=== PATIENT | male | born 1960 | race Caucasian/White ===

== ENCOUNTER 2024-07-01 22:31 | Inpatient (IN) ==
[2024-07-01] MEDS: OPTIRAY 320 125ml IV ONE (22:36)
--- OUTSIDE RECORDS SUMMARY | 2024-07-01 22:38 | External Medical Summary | Summary of Care ---
Author Name Unknown Organization [facility] Address [address] [facility] [address] Phone [phone] Care Team Providers Care Program Dir Name Role Phone Fidencio Thrasher MD Primary Care Provide r Reason for Visit * Reason Onset Date Comments Advice 02/29/2024 Encounter Details Date Type Department Care Team (Late st Contact Info) Description 02/29/2024 Telephone Family Medicine [address] [address] Fidencio Thrasher MD [address] [place] [address] [place] [address] Advice Allergies No known active allergiesdocumented as of this encounter (statuses as of 03/07/2024) Medications Medication Sig Dispensed Refills Start Date End Date Status ONETOUCH ULTRA TEST STRPIndications:DM type 2, not at goal (HCC) daily 100 11 06/19/2009 Active Rosuvastatin Calcium 5 MG Oral Tablet (Crestor)Indications: Dyslipidemia, goal LDL below 100 TAKE 1 TABLET BY MOUTH 3 TIMES A WEEK (TUESDAY, TUESDAY & TUESDAY) 36 Tablet 1 11/22/2023 Active Pioglitazone HCl 30 MG Oral Tablet (Actos)Indications:Ty pe 2 diabetes mellitus with hemoglobin A1c goal of less than 7.0% (HCC) TAKE 1 TABLET BY MOUTH EVERY DAY IN THE MORNING 90 Tablet 3 12/28/2023 Active Lisinopril 30 MG Oral TabletIndications:Typ e 2 diabetes mellitus with hemoglobin A1c goal of less than 7.0% (HCC),Primary hypertension TAKE 1 TABLET BY MOUTH EVERY DAY IN THE MORNING 90 Tablet 3 12/28/2023 Active Citalopram Hydrobromide 10 MG Oral Tablet (CeleXA)Indications:A cute stress disorder Take 1 Tablet by mouth in the morning. 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 11/07/2017 Primary hypertension 01/26/2016 Hypersomnia with sleep apnea 11/20/2010 HYPOXEMIA: nocturnal 09/04/2010 SLEEP APNEA, UNSPECIFIED: AHI 68.7 09/04/2010 Overview: Compliance 11/03 to 12/20/10 -- days used 93%, days with >=4 hrs used 75%, pressures 12-16, AHI 4.4 Compliance 09/16 to 10/04/10 -- used 89% days, days > 4 hrs used 21%, average use 1:58 hrs, BIRD 2.6, 12-14 cwp 09/17/10 Nocturnal on CPAP/RA -- low 86%, mean 92%, time <=88% 1:56 mins, BIRD 9.6 AHP, CPAP auto 10-20 cwp, no oxygen Diverticulosis of colon 07/23/2009 Overview: sigmoid DYSLIPIDEMIA, GOAL LDL BELOW 100 06/17/2009 Overview: Per Lipid Taxonomy. Type 2 diabetes mellitus wit h hemoglobin A1c goal of less than 7.0% 05/08/2009 Overview: Per Diabetes Taxonomy. ICD-10 update of inactive term ADVANCE DIRECTIVE INFORMATION 05/17/2006 Overview: No, Advance Directive brochure offered , patient declined. documented as of this encounter (statuses as of 03/07/2024) Resolved Problems Problem Noted Date Diagnosed Date Resolved Date Stage 3a chronic kidney disease 11/30/2021 12/13/2022 Overview: EGFR 56 Body mass index (BMI) of 45. 0 to 49.9 in adult 02/18/2020 06/26/2020 Overview: Per Obesity protocol - 320 Morbid obesity with BMI of 50.0-59.9, adult 02/05/2020 02/21/2020 Overview: 320 Body mass index (BMI) of 50. 0 to 59.9 in adult 06/18/2019 02/21/2020 Overview: Per Obesity protocol Body mass index (BMI) of 45. 0 to 49.9 in adult 07/19/2017 05/26/2018 Overview: Per Obesity protocol #1 - Per Obesity protocol #1 Body mass index (BMI) of 40. 0 to 44.9 in adult 04/11/2017 07/21/2017 Overview: Per Obesity protocol #1 Gout of right ankle 03/26/2016 05/09/20 18 Overview: uric acid 8.9 Acute idiopathic gout of right ankle 02/14/2016 05/10/2017 HTN, goal below 140/90 02/28/201201/25 Overview: Per HTN Protocol #27. Obesity, morbid (more than 1 00 lbs over ideal weight or BMI > 40) 10/07/2009 01/18/2011 Overview: Per Obesity Taxonomy ICD-10 update of inactive term Benign neoplasm of colon 07/23/200905/2011 Overview: 2 sessile polyps in rectum, 2 sessile polyps in ascending colon Benign neoplasm of colon 07/23/2009 Overview: 2 sessile polyps in rectum, 2 adenomas in ascending colon HTN, goal below 130/80 06/19/200903/02 HTN, goal below 140/90 05/16/200906/19 Overview: Modified per HTN Taxonomy. Mixed dyslipidemia 05/24/2006 9 Overview: Per Lipid Taxonomy. BENIGN HYPERTENSION 05/17/2006 05/16/20 09 Overview: Modified per HTN Taxonomy. Type 2 diabetes mellitus wit h hemoglobin A1c goal of less than 7.0% 05/17/2006 05/08/2009 Overview: Per Diabetes Taxonomy. ICD-10 update of inactive term Obesity, BMI not known 10/07 Overview: Per Obesity Taxonomy BMI 45.0-49.9, adult 017 Overview: Per Obesity protocol #1 Morbid obesity with BMI of 45.0-49.9, adult 06/21/2019 Overview: Per Obesity protocol documented as of this encounter (statuses as of 03/07/2024) Immunizations Name Administration Dates Next Due COVID-19 mRNA, LNP-s, No Pre serve, 2-Dose Series (Adore Me) 06/23/2021,06/02/2021 Seasonal Influenza, PF, 6 M & above, IM , (FluLaval or Fluzone) 06/13/2023,03/24/2022,06/01/2021, 0 20,04/25/2019,05/09/2018,05/10/2017 Seasonal Influenza, Quadriva lent, No Preserve, IM 04/03/2015 Seasonal Influenza, Split, I IV3, With Preserve, Inj 04/03/2014 TD - Tetanus/Diptheria (ADULT) 03/11/2005 TDAP (age 10 and older)(Boostrix) 04/03/2015 documented as of this encounter Social History Tobacco Use Types Packs/Day Years Used Date Smoking Tobacco: Former Cigarettes 2 2 0 07/11/1982 - 07/11/1984 Smokeless Tobacco: Current Chew Comments:QUIT SMOKING 30YEAR S AGO Alcohol Use Standard Drinks/Week Comments Yes 0 (1 standard drink = 0.6 oz pur e alcohol) rare now, use to drink heavily PHQ-2 Answer Date Recorded PHQ-2 Score -1 05/19/2020 Sex and Gender Information Value Date Recorded Sex Assigned at Not on file Gender Identity Not on file Sexual Orientation Not on file Job Start Date Occupation Industry Not on file Not on file Not on file documented as of this encounter Miscellaneous Notes * Telephone Encounter - Yesenia Singletary CMA - 03/07/2024 3:01 PM EDT The forms were received and complete by PCP Dr. Harkins. Faxed back yesterday. * Telephone Encounter - Ava Wall OSA - 03/02/2024 1:43 PM EDT [facility] and also they were faxing over a [employer] for today that needs to be signed by Dr Jeramy Jiang since she is the one who prescribed his Celexa. * Telephone Encounter - Shira Best OSA - 03/02/2024 10:27 AM EDT Faxed * Telephone Encounter - Horacio Silveira OSA - 02/29/2024 4:27 PM EDT Images from the original note were not included. Reason for patient's call: Patient requesting to speak to someone at the clinic about having information faxed to [facility] with last last A1C faxed # [phone] regarding CDL physical and doctors name needed on form for medication Citalopram Hydrobromide 10 MG Oral Tablet (CeleXA) Contact Information [phone] documented in this encounter Plan of Treatment Upcoming Encounters Date Type Department Care Team (Late st Contact Info) Description 08/01/2024 8:00 AM EST Office Visit Family [address] [place] [address] Fidencio Thrasher MD [address] [place] [address] [place] [address] Scheduled Procedures Name Priority Associated Diagnoses Date/Ti me COLONOSCOPY FLEXIBLE PROXIMAL DIAGNOSTIC Recall History of colon polyps Health Maintenance Due Date Last Done Comments Pneumococcal Vaccine: Pediatrics (0 to 5 Years) and At-Risk Patients (6 to 64 Years) (1 of 2 - PCV) 1965 HIV Screening 1974 Cologuard 2004 Fecal Occult Blood Test 2004 Sigmoidoscopy 2004 Zoster Vaccines (1 of 2) 2009 Depression Screening 05/19/2021 05/19/2020 COVID-19 Vaccine ( season) 2023 06/23/2021, 06/02/2021 Influenza Vaccine (FLU shot) (#1) 2024 06/13/2023, 03/24/2022, 06/01/2021, Additional history exists HbA1c 06/13/2024 12/13/2023, 12/0 10/2022, 11/29/2022, Additional history exists Albumin/Creatinine Ratio 12/12/20242 024, 11/29/2022, 11/30/2021, Additional history exists Diabetic Eye Exam 12/12/2024 12/13/2023, , 01/24/2020, Additional history exists Diabetic Foot Exam 12/12/2024 12/13/2023, 0 12/13/2022, 11/30/2021, Additional history exists GFR 12/12/2024 12/13/2023, 12/0 10/2022, 11/29/2022, Additional history exists DTap/Tdap Vaccines (2 - Td or Tdap) 04/03/2025 04/03/2015, 03/11/2005 Colonoscopy 02/10/2027 02/10/2022, 09/2021, 02/10/2022, Additional history exists Colorectal Cancer Screening 02/10/2027 Lipid Panel 06/13/2028 06/13/2023, 11/09, 11/30/2021, Additional history exists RETIRED - COLONOSCOPY-EVERY 5 YRS AGES 18-100 Discontinued 02/10/2022, 02/10/2022, 02/10/2022, Additional history exists HPV (Gardasil) Vaccine Aged Out No lo nger eligible based on patient's age to complete this topic Hepatitis B Vaccine Aged Out No longe r eligible based on patient's age to complete this topic MENINGOCOCCAL (MENACTRA/MENVEO) Aged Out No longer eligible based on patient's age to complete this topic documented as of this encounter Medical Devices Not on filedocumented as of this encounter Care Teams Program Dir Relationship Specialty Start Date End Date Fidencio Thrasher MD [address] [place] [address] [place] [address] PCP - General Family Medicine 06/13/23 documented as of this encounter
--- OUTSIDE RECORDS SUMMARY | 2024-07-01 22:38 | External Medical Summary | Summary of Care ---
Author Name Unknown Organization [facility] Address [address] [facility] [place] [address] Phone [phone] Care Team Providers Care Personnel Recruiter Name Role Phone Fidencio Thrasher MD Primary Care Provide r Encounter Details Date Type Department Care Team (Late st Contact Info) Description 02/29/2024 Telephone Cardiac Studies, [facility] [address] [facility] [place] [address] Fidencio Thrasher MD [address] [place] [address] [place] [address] Allergies No known active allergiesdocumented as of this encounter (statuses as of 05/30/2024) Medications ONETOUCH ULTRA TEST STRPIndications:D M type 2, not at goal (HCC) daily 100 11 9 Active Rosuvastatin Calcium 5 MG Oral Tablet (Crestor)Indicati ons:Dyslipidemia, goal LDL below 100 TAKE 1 TABLET BY MOUTH 3 TIMES A WEEK (TUESDAY, TUESDAY & TUESDAY) 36 Tablet 1 4 Active Pioglitazone HCl 30 MG Oral Tablet (Actos)Indication s:Type 2 diabetes mellitus with hemoglobin A1c goal of less than 7.0% (HCC) TAKE 1 TABLET BY MOUTH EVERY DAY IN THE MORNING 90 Tablet 3 4 Active Lisinopril 30 MG Oral TabletIndications :Type 2 diabetes mellitus with hemoglobin A1c goal of less than 7.0% (HCC),Primary hypertension TAKE 1 TABLET BY MOUTH EVERY DAY IN THE MORNING 90 Tablet 3 4 Active Citalopram Hydrobromide 10 MG Oral Tablet (CeleXA)Indicatio ns:Acute stress disorder Take 1 Tablet by mouth in the morning. 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 Type 2 diabetes mellitus wit h hemoglobin A1c goal of less than 7.0% 05/08/2009 Overview (11/04/2015): Per Diabetes Taxonomy. ICD-10 update of inactive term documented as of this encounter (statuses as of 05/30/2024) Resolved Problems Problem Noted Date Diagnosed Date Resolved Date Stage 3a chronic kidney disease 11/30/2021 12/13/2022 Overview (12/01/2021): EGFR 56 Body mass index (BMI) of 45. 0 to 49.9 in adult 02/18/2020 06/26/2020 Overview: Per Obesity protocol - 320 Morbid obesity with BMI of 50.0-59.9, adult 02/05/2020 02/21/2020 Overview (02/05/2020): 320 Body mass index (BMI) of 50. [...] Gout of right ankle 03/26/2016 05/09/20 18 Overview (03/29/2016): uric acid 8.9 Acute idiopathic gout of right ankle 02/14/2016 05/10/2017 HTN, goal below 140/90 02/28/201201/25 Overview: Per HTN Protocol #27. Obesity, morbid (more than 1 00 lbs over ideal weight or BMI > 40) 10/07/2009 01/18/2011 Overview (09/29/2015): Per Obesity Taxonomy ICD-10 update of inactive term Benign neoplasm of colon 07/23/200905/2011 Overview (07/23/2009): 2 sessile polyps in rectum, 2 sessile polyps in ascending colon Benign neoplasm of colon 07/23/2009 Overview (07/25/2009): 2 sessile polyps in rectum, 2 adenomas in ascending colon HTN, goal below 130/80 06/19/200903/02 HTN, goal below 140/90 05/16/200906/19 Overview (05/16/2009): Modified per HTN Taxonomy. Mixed dyslipidemia 05/24/2006 9 Overview (06/17/2009): Per Lipid Taxonomy. ADVANCE DIRECTIVE INFORMATION 05/17/2006 05/14/2024 Overview (05/17/2006): No, Advance Directive brochure offered , patient declined. BENIGN HYPERTENSION 05/17/2006 05/16/20 09 Overview (05/16/2009): Modified per HTN Taxonomy. Type 2 diabetes mellitus wit h hemoglobin A1c goal of less than 7.0% 05/17/2006 05/08/2009 Overview (11/04/2015): Per Diabetes Taxonomy. ICD-10 update of inactive term Obesity, BMI not known 10/07 Overview (10/07/2009): Per Obesity Taxonomy BMI 45.0-49.9, adult 017 Overview: Per Obesity protocol #1 Morbid obesity with BMI of 45.0-49.9, adult 06/21/2019 Overview: Per Obesity protocol documented as of this encounter (statuses as of 05/30/2024) Immunizations Name Administration Dates Next Due COVID-19 mRNA, LNP-s, No Pre serve, 2-Dose Series (Pfizer) 06/23/2021,06/02/2021 Seasonal Influenza Vac., MDV , IM, 0.5 mL (Fluzone) 04/03/2014 Seasonal Influenza, PF, 6 M & above, IM , (FluLaval or Fluzone) 06/13/2023,03/24/2022,06/01/2021, 020,04/25/2019,05/09/2018,05/10/2017 Seasonal Influenza, Quadriva lent, No Preserve, IM 04/03/2015 TD - Tetanus/Diptheria (ADULT) 03/11/2005 TDAP (age [...] Recorded Sex Assigned at Not on file Legal Sex Male 5:28 AM EST Gender Identity Not on file Sexual Orientation Not on file Occupation Industry Job Start Date Job End Date Not on file Not on file Not on file Not on file documented as of this encounter Miscellaneous Notes * Telephone Encounter - Margarita Lewis RDCS - 02/29/2024 2:18 PM EDT Placed new treadmill stress test order. documented in this encounter Plan of Treatment Upcoming Encounters Date Type Department Care Team (Late st Contact Info) Description 08/01/2024 8:00 AM EST Office Visit Family Medicine [address] [place] [phone] Fidencio Thrasher MD [address] [place] [address] [place] [id number] Pending Results Name Type Priority Associated Diagnoses Date /Time CV STRESS TREADMILL Echocardiology Routine Other chest pain 02/29/2024 2:29 PM EDT Scheduled Orders Name Type Priority Associated Diagnoses Orde r Schedule CV STRESS TREADMILL Echocardiology Routine Other chest pain Expected: 02/29/2024, Expires: 03/31/2024 Scheduled Procedures Name Priority Associated Diagnoses Date/Ti me COLONOSCOPY FLEXIBLE PROXIMAL DIAGNOSTIC Recall History of colon polyps Health Maintenance Due Date Last Done Comments Pneumococcal Vaccine: 65+ Years (1 of 2 - PCV) 1965 HIV Screening 1974 Cologuard 2004 Fecal Occult Blood Test 2004 Sigmoidoscopy 2004 Zoster Vaccines (1 of 2) 2009 Depression Screening 05/19/2021 05/19/2020 COVID-19 Vaccine ( - season) 2024 06/23/2021, 06/02/2021 Influenza Vaccine (FLU shot) (#1) 2024 06/13/2023, 03/24/2022, 06/01/2021, Additional history exists AAA Screening 2024 HbA1c 06/13/2024 12/13/2023, 12/0 10/2022, 11/29/2022, Additional history exists Albumin/Creatinine Ratio 12/12/2024 024, 11/29/2022, 11/30/2021, Additional history exists Diabetic Eye Exam 12/12/2024 12/13/2023, , 01/24/2020, Additional history exists Diabetic Foot Exam 12/12/2024 12/13/2023, 0 12/13/2022, 11/30/2021, Additional history exists GFR 12/12/2024 12/13/2023, 12/0 10/2022, 11/29/2022, Additional history exists DTap/Tdap Vaccines (2 - Td or Tdap) 04/03/2025 04/03/2015, 03/11/2005 Colonoscopy 02/10/2027 02/10/2022, 08/0 09/2021, 02/10/2022, Additional history exists Colorectal Cancer [...] Not on filedocumented as of this encounter Visit Diagnoses Diagnosis Other chest pain- Primary documented in this encounter Care Teams Personnel Recruiter Relationship Specialty Start Date End Date Fidencio Thrasher MD [address] [place] [address] [place] [address] PCP - General Family Medicine 06/13/23 documented as of this encounter
--- OUTSIDE RECORDS SUMMARY | 2024-07-01 22:38 | External Medical Summary | Summary of Care ---
Author Name Unknown Organization [facility] Address [address] [facility] [place] [address] Phone [phone] Care Team Providers Care Drink Mixer Name Role Phone Fidencio Thrasher MD Primary Care Provide r Reason for Visit * Reason Onset Date Comments Health Maintenance 04/25/2024 Encounter Details Date Type Department Care Team (Late st Contact Info) Description 04/25/2024 Telephone Family Medicine [address] [phone] Fidencio Thrasher MD [address] [place] [address] [place] [address] Health Maintenance Allergies No known active allergiesdocumented as of this encounter (statuses as of 04/25/2024) Medications Medication Sig Dispensed Refills Start Date [...] hemoglobin A1c goal of less than 7.0% ([facility]),Primary hypertension TAKE 1 TABLET BY MOUTH EVERY DAY IN THE MORNING 90 Tablet 3 12/28/2023 Active Citalopram Hydrobromide 10 MG Oral Tablet (CeleXA)Indications:A cute stress disorder Take 1 Tablet by mouth in the morning. 90 Tablet 1 01/09/2024 Active documented as of this encounter (statuses as of 04/25/2024) Active Problems Problem Noted Date Diagnosed Date [...] as of this encounter (statuses as of 04/25/2024) Resolved Problems Problem Noted Date Diagnosed Date [...] as of this encounter (statuses as of 04/25/2024) Immunizations Name Administration Dates Next Due COVID-19 [...] encounter Miscellaneous Notes * Telephone Encounter - Karime Walker LPN - 04/25/2024 9:24 AM EDT Care Gaps Comprehensive Care Outreach Last Office/Telemedicine Visit: 12/13/2023 (in office), Visit date not found (telemedicine) Next Office Visit: 08/01/2024 Hemoglobin AIC Results: Lab Results Component Value Date/Time HEMOGLOBIN A1C - [facility] 6.6 (H) 12/13/2023 11:59 AM HEMOGLOBIN A1C - [facility] 6.7 (H) 06/13/2023 02:24 PM HEMOGLOBIN A1C - [facility] 6.2 (H) 11/29/2022 03:31 PM HEMOGLOBIN A1C - [facility] 6.0 (H) 08/29/2019 11:32 AM HEMOGLOBIN A1C - [facility] 6.0 (H) 12/05/2018 03:23 PM HEMOGLOBIN A1C - [facility] 6.1 (H) 05/09/2018 08:23 AM BP Readings from Last 1 Encounters: 12/13/23 138/70 Reviewed Health Maintenance below: Health Maintenance Topic Date Due Pneumococcal Vaccine: 65+ Years (1 of 2 - PCV) Never done HIV Screening Never done Zoster Vaccines (1 of 2) Never done Depression Screening 05/19/2021 Influenza Vaccine (FLU shot) (1) 03/11/2024 COVID-19 Vaccine (3 - 2023- season) 2024 AAA Screening Never done HbA1c 06/13/2024 Lab Aaa Care Gap Outreach Action Taken: Left message documented in this encounter Plan of Treatment Upcoming Encounters Date Type Department Care Team (Late st Contact Info) Description 08/01/2024 8:00 AM EST Office Visit Family Medicine [address] [place] [address] Fidencio Thrasher MD [address] [place] [address] [place] [address] Scheduled Procedures Name Priority Associated Diagnoses Date/Ti [...] filedocumented as of this encounter Care Teams Drink Mixer Relationship Specialty Start Date End Date Fidencoi Thrasher MD [address] [place] [address] [place] [phone] PCP - General Family Medicine 06/13/23 documented as of this encounter
--- OUTSIDE RECORDS SUMMARY | 2024-07-01 22:38 | External Medical Summary | Summary of Care ---
Author Name Unknown Organization [facility] Address [address] [facility] [place] [address] Phone [phone] Care Team Providers Care Real Estate Intern Name Role Phone Fidencio Thrasher MD Primary Care Provide r Reason for Visit * Reason Onset Date Comments Letter Requests 02/16/2024 Letter of medica l necessity Encounter Details Date Type Department Care Team (Late st Contact Info) Description 02/16/2024 Telephone Family Medicine [address] [phone] Fidencio Thrasher MD [address] [place] [address] [place] [address] Letter Requests (Letter of medical necessity) Allergies No known active allergiesdocumented as of this encounter (statuses as of 02/20/2024) Medications Medication Sig Dispensed Refills Start Date [...] as of this encounter (statuses as of 02/20/2024) Active Problems Problem Noted Date Diagnosed Date [...] as of this encounter (statuses as of 02/20/2024) Resolved Problems Problem Noted Date Diagnosed Date [...] as of this encounter (statuses as of 02/20/2024) Immunizations Name Administration Dates Next Due COVID-19 mRNA, LNP-s, No Pre serve, 2-Dose Series (Pfizer) 06/23/2021,06/02/2021 Seasonal Influenza, PF, 6 M & [...] encounter Miscellaneous Notes * Telephone Encounter - Chelo Aguilera RN - 02/20/2024 1:05 PM EDT Faxed * Telephone Encounter - Fidencio Thrasher MD - 02/16/2024 9:50 PM EDT Letter written * Telephone Encounter - Chelo Aguilera RN - 02/16/2024 2:07 PM EDT Can you write letter stating pt is ok to drive on anxiety medication? Last HGBA1C was 6.6 on 12/13/2023 Here is last eye exam: Retinal Scan Imaging [facility] Teixeira [place] [phone] Retinal Scan Interpretation: There is no retinopathy in both eyes Diabetes Retinal Imaging Care Plan: The retinal scan results are normal - I will forward this encounter to the Ophthalmology DM Letter Pool [[id number]], they will send a normal retinal scan letter to the patient, and the patient will be seen back for a yearly scan. Alphonso Colon MD 12/19/2023 9:53 AM * Telephone Encounter - Lakia Kothari OSA - 02/16/2024 2:00 PM EDT Type of letter requested: letter from primary for CDL physical Does the letter need to provide any specific information: patient is ok to drive,compliant with antianxiety meds,last A1C test result, last test rest of diabetic eye exam. Would you like letter faxed or picked up?: faxed Fax number: [phone] Number to be called when ready to be picked up: Date needed: 02/21/24 documented in this encounter Plan of Treatment Upcoming Encounters Date Type Department Care Team (Late st Contact Info) Description 02/29/2024 8:30 AM EDT Imaging Cardiac Studies, [facility] [address] [place] [address] 08/01/2024 8:00 AM EST Office Visit Family Medicine [address] [place] [phone] Fidencio Thrasher MD [address] [place] [address] [place] [address] Scheduled Procedures Name Priority Associated Diagnoses Date/Ti [...] 2009 Depression Screening 05/19/2021 05/19/2020 COVID-19 Vaccine (3 - season) 2023 06/23/2021, 06/02/2021 Influenza Vaccine (FLU shot) (#1) 2024 06/13/2023, 03/24/2022, 06/01/2021, Additional history exists HbA1c 06/13/2024 12/13/2023, 12/0 10/2022, 11/29/2022, Additional history exists Albumin/Creatinine Ratio 12/12/20242 024, 11/29/2022, 11/30/2021, Additional history exists Diabetic Eye Exam 12/12/2024 12/13/2023, , 01/24/2020, Additional history exists Diabetic Foot Exam 12/12/2024 12/13/2023, 0 12/13/2022, 11/30/2021, Additional history exists GFR 12/12/2024 12/13/2023, 1210/2022, 11/29/2022, Additional history exists DTaP,Tdap,and Td Vaccines (2 - Td or Tdap) 04/03/2025 [...] filedocumented as of this encounter Care Teams Real Estate Intern Relationship Specialty Start Date End Date Fidencio Thrasher MD [address] [place] [address] [place] [address] PCP - General Family Medicine 06/13/23 documented as of this encounter
--- OUTSIDE RECORDS SUMMARY | 2024-07-01 22:38 | External Medical Summary | Summary of Care ---
Author Name Unknown Organization [facility] Address [address] [facility] [place] [address] Phone [phone] Care Team Providers Care Candy Puller Name Role Phone Fidencio Thrasher MD Primary Care Provide r Reason for Visit * Reason Onset Date Comments Letter Requests 02/16/2024 Letter of medica l necessity Encounter Details Date Type Department Care Team (Late st Contact Info) Description 02/16/2024 Telephone Family Medicine [address] [phone] Fidencio Thrasher MD [address] [place] [address] [place] [address] Letter Requests (Letter of medical necessity) Allergies No known active allergiesdocumented as of this encounter (statuses as of 02/16/2024) Medications Medication Sig Dispensed Refills Start Date [...] as of this encounter (statuses as of 02/16/2024) Active Problems Problem Noted Date Diagnosed Date [...] as of this encounter (statuses as of 02/16/2024) Resolved Problems Problem Noted Date Diagnosed Date [...] as of this encounter (statuses as of 02/16/2024) Immunizations Name Administration Dates Next Due COVID-19 [...] encounter Miscellaneous Notes * Telephone Encounter - Fidencio Thrasher MD - 02/16/2024 9:50 PM EDT Letter written * Telephone Encounter - Chelo Aguilera RN - 02/16/2024 2:07 PM EDT Can you write letter stating pt is ok to drive on anxiety medication? Last HGBA1C was 6.6 on 12/13/2023 Here is last eye exam: Retinal Scan Imaging [facility] [place] [id number] Retinal Scan Interpretation: There is no retinopathy in both eyes Diabetes Retinal Imaging Care Plan: The retinal scan results are normal - I will forward this encounter to the Ophthalmology DM Letter Pool [[id number]], they will send a normal retinal scan [...] faxed or picked up?: faxed Fax number: [phone] Number to be called when ready to be picked up: Date needed: 02/21/24 documented in this encounter Plan of Treatment Upcoming Encounters Date Type Department Care Team (Late st Contact Info) Description 02/29/2024 8:30 AM EDT Imaging Cardiac Studies, [facility] [address] [place] [address] 08/01/2024 8:00 AM EST Office Visit Family Medicine [address] [place] [phone] Fidencio Thrasher MD [address] [place] [address] [place] [address] Scheduled Procedures Name Priority Associated Diagnoses Date/Ti [...] 11/30/2021, Additional history exists GFR 12/12/2024 12/13/2023, 10/2022, 11/29/2022, Additional history exists DTaP,Tdap,and Td Vaccines [...] filedocumented as of this encounter Care Teams Candy Puller Relationship Specialty Start Date End Date Fidencio Thrasher MD [address] [place] [address] [place] [address] PCP - General Family Medicine 06/13/23 documented as of this encounter
--- OUTSIDE RECORDS SUMMARY | 2024-07-01 22:38 | External Medical Summary | Summary of Care ---
Author Name Unknown Organization [facility] Address [address] [facility] [address] Phone [phone] Care Team Providers Care Rockboard Lather Name Role Phone Fidencio Thrasher MD Primary Care Provide r Reason for Visit * Reason Onset Date Comments Advice 02/29/2024 Encounter Details Date Type Department Care Team (Late st Contact Info) Description 02/29/2024 Telephone Family Medicine [address] [phone] Fidencio Thrasher MD [address] [place] [address] [place] [address] Advice Allergies No known active allergiesdocumented as of this encounter (statuses as of 03/02/2024) Medications Medication Sig Dispensed Refills Start Date [...] as of this encounter (statuses as of 03/02/2024) Active Problems Problem Noted Date Diagnosed Date [...] as of this encounter (statuses as of 03/02/2024) Resolved Problems Problem Noted Date Diagnosed Date [...] as of this encounter (statuses as of 03/02/2024) Immunizations Name Administration Dates Next Due COVID-19 mRNA, LNP-s, No Pre serve, 2-Dose Series ([employer]) 06/23/2021,06/02/2021 Seasonal Influenza, PF, 6 M & [...] encounter Miscellaneous Notes * Telephone Encounter - Ava Wall OSA - 03/02/2024 1:43 PM EDT Pt is calling to state that [facility] Chiroprator did not yet receive the forms from [...] the clinic about having information faxed to [facility] Chiropractor with last last A1C faxed # [phone] regarding CDL physical and doctors name needed on form for medication Citalopram Hydrobromide 10 MG Oral Tablet (CeleXA) Contact Information [phone] documented in this encounter Plan of Treatment Upcoming Encounters Date Type Department Care Team (Late st Contact Info) Description 08/01/2024 8:00 AM EST Office Visit Family Medicine [address] [place] [phone] Fidencio Thrasher MD [address] [place] [address] [place] [address] Scheduled Procedures Name Priority Associated Diagnoses Date/Ti [...] 05/19/2021 05/19/2020 COVID-19 Vaccine ( - season) 2023 06/23/2021, 06/02/2021 Influenza Vaccine [...] 12/13/2023, 12/0 10/2022, 11/29/2022, Additional history exists DTaP,Tdap,and Td [...] filedocumented as of this encounter Care Teams Rockboard Lather Relationship Specialty Start Date End Date Fidencio Thrasher MD [address] [place] [address] [place] [address] PCP - General Family Medicine 06/13/23 documented as of this encounter
--- OUTSIDE RECORDS SUMMARY | 2024-07-01 22:38 | External Medical Summary | Summary of Care ---
Author Name Unknown Organization [facility] Address [address] [facility] [address] Phone [phone] Care Team Providers Care Vector Control Assistant Name Role Phone Fidencio Thrasher MD Primary Care Provide r Reason for Visit * Reason Onset Date Comments Advice 02/14/2024 Encounter Details Date Type Department Care Team (Late st Contact Info) Description 02/14/2024 Telephone Family Medicine [address] [phone] Fidencio Thrasher MD [address] [place] [address] [place] [address] Advice Allergies No known active allergiesdocumented [...] #1 Gout of right ankle 03/26/2016 05/09/20 Overview: uric acid 8.9 Acute idiopathic gout [...] mRNA, LNP-s, No Pre serve, 2-Dose Series ([employer]) 06/23/2021,06/02/2021 Seasonal Influenza, PF, 6 M & [...] encounter Miscellaneous Notes * Telephone Encounter - Shira Best OSA - 02/16/2024 9:09 AM EDT I spoke to patient today, 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 He said he will call other places. * Telephone Encounter - Deja Correa OSA - 02/14/2024 10:53 AM EDT No Appointments Available Patient declined appointments?: No What Visit Type is needed? CDL Physical If Acute Visit Type is needed, were surrounding clinics offered to patient (Yes/No)? N/A Was patient offered appointments with other available providers (Yes/No)? No, explain No appts avaliable See Call Details? (Yes or No): No documented in this encounter Plan of Treatment Upcoming Encounters Date Type Department Care Team (Late st Contact Info) Description 02/29/2024 8:30 AM EDT Imaging Cardiac Studies, [facility] [address] [place] [address] 08/01/2024 8:00 AM EST Office Visit Family Medicine [address] [place] [phone] Fidencio Thrasher MD [address] [place] [address] [place] [address] Scheduled Procedures Name Priority Associated Diagnoses Date/Ti [...] filedocumented as of this encounter Care Teams Vector Control Assistant Relationship Specialty Start Date End Date Fidencio Thrasher MD [address] [place] [address] [place] [address] PCP - General Family Medicine 06/13/23 documented as of this encounter
--- OUTSIDE RECORDS SUMMARY | 2024-07-01 22:38 | External Medical Summary | Summary of Care ---
Author Name Unknown Organization [facility] Address [address] [facility] [address] Phone [phone] Care Team Providers Care Retail Cashier Name Role Phone Fidencio Thrasher MD Primary Care Provide r Reason for Visit * Reason Onset Date Comments Advice 02/29/2024 Encounter Details Date Type Department Care Team (Late st Contact Info) Description 02/29/2024 Telephone Family Medicine [address] [phone] Fidencio Thrasher MD [address] [place] [address] [place] [address] Advice Allergies No known active allergiesdocumented [...] mRNA, LNP-s, No Pre serve, 2-Dose Series ([employer]) 06/23/2021,06/02/2021 Seasonal Influenza, PF, 6 M & [...] EDT Pt is calling to state that [facility] Chiroprator did not yet receive the [...] the clinic about having information faxed to [facility] Chiropractor with last last A1C faxed # [phone] regarding CDL physical and doctors name needed on form for medication Citalopram Hydrobromide 10 MG Oral Tablet (CeleXA) Contact Information [phone] documented in this encounter Plan of Treatment Upcoming Encounters Date Type Department Care Team (Late st Contact Info) Description 08/01/2024 8:00 AM EST Office Visit Family Medicine [address] [place] [phone] Fidencio Thrasher MD [address] [place] [address] [place] [address] Scheduled Procedures Name Priority Associated Diagnoses Date/Ti [...] filedocumented as of this encounter Care Teams Retail Cashier Relationship Specialty Start Date End Date Fidencio Thrasher MD [address] [place] [address] [place] [address] PCP - General Family Medicine 06/13/23 documented as of this encounter
--- OUTSIDE RECORDS SUMMARY | 2024-07-01 22:38 | External Medical Summary | Summary of Care ---
Author Name Unknown Organization [facility] Address [address] [facility] [place] [address] Phone [phone] Care Team Providers Care Siebel Crm Developer Name Role Phone Fidencio Thrasher MD Primary Care Provide r Reason for Referral * Evaluate & Treat - Unlimited Visits (Within 30 days (routine)) - Pending Review Specialty Diagnoses / Procedures Referred By Contact Referred To Contact Cardiovascular Medicine / Cardiology Diagnoses Other chest pain Fidencio Thrasher MD [address] [place] [address] [place] [address] Phone: tel: fax: Referral ID Status Reason Start Date Expiration Date Visits Requested Visits Authorized [id number] Pending Review Specialty Services Required 4 [phone] Question Answer Referral Priority Within 30 days (routine) Where should this appointment be scheduled? [facility] To which of the following clinics are you referring your patient? General Cardiology Clinic Comments No need for appt with cardiology. Referral for insurance purposes Reason for Visit * Reason Onset Date Comments Advice 06/21/2024 Encounter Details Date Type Department Care Team (Late st Contact Info) Description 06/21/2024 Telephone Family Medicine [address] [place] [phone] Fidencio Thrasher MD [address] [place] [address] [place] [id number] Advice Allergies No known active allergiesdocumented as of this encounter (statuses as of 06/26/2024) Medications ONETOUCH ULTRA TEST STRPIndications:D M type [...] as of this encounter (statuses as of 06/26/2024) Active Problems Problem Noted Date Diagnosed Date [...] as of this encounter (statuses as of 06/26/2024) Resolved Problems Problem Noted Date Diagnosed Date [...] as of this encounter (statuses as of 06/26/2024) Immunizations Name Administration Dates Next Due COVID-19 [...] Telephone Encounter - Fidencio Thrasher MD - 06/26/2024 8:16 PM EST Referral placed - but no need for appt * Telephone Encounter - Lovely Singh OSA - 06/21/2024 2:27 PM EST Paulai with [employer] billing in calling in stating that pt had a cardiac study on 02/29/24 and pt insurance wont cover it because pt needs a referral that is what is preventing them from processing the claim Patient call back number is [phone] documented in this encounter Plan of Treatment Upcoming Encounters Date Type Department Care Team (Late st Contact Info) Description 08/01/2024 8:00 AM EST Office Visit Family Medicine [address] [place] [phone] Fidencio Thrasher MD [address] [place] [address] [place] [address] Scheduled Procedures Name Priority Associated Diagnoses Date/Ti me COLONOSCOPY FLEXIBLE PROXIMAL DIAGNOSTIC Recall History of colon polyps Scheduled Referrals Name Type Priority Associated Diagnoses Orde r Schedule CARDIOLOGY REFERRAL OP Referral Within 30 days (routine) Other chest pain Ordered: 06/26/2024 Health Maintenance Due Date Last Done Comments Pneumococcal Vaccine: 65+ Years (1 of 2 - PCV) 1965 HIV Screening 1974 Cologuard 2004 Fecal Occult Blood Test 2004 Sigmoidoscopy 2004 Zoster Vaccines (1 of 2) 2009 Depression Screening 05/19/2021 05/19/2020 COVID-19 Vaccine ( season) 2024 06/23/2021, 06/02/2021 Influenza Vaccine (FLU shot) (#1) 2024 06/13/2023, 03/24/2022, 06/01/2021, Additional history exists AAA Screening 2024 HbA1c 06/13/2024 12/13/2023, 120 10/2022, 11/29/2022, Additional history exists Albumin/Creatinine Ratio 12/12/2024 024, 11/29/2022, 11/30/2021, Additional history exists Diabetic Eye Exam 12/12/2024 12/13/2023, , 01/24/2020, Additional history exists Diabetic Foot Exam 12/12/2024 12/13/2023, 0 12/13/2022, 11/30/2021, Additional history exists GFR 12/12/2024 12/13/2023, 1210/2022, 11/29/2022, Additional history exists DTap/Tdap Vaccines (2 [...] Primary documented in this encounter Care Teams Siebel Crm Developer Relationship Specialty Start Date End Date Fidencio Thrasher MD [address] [place] [address] [place] [id number] PCP - General Family Medicine 06/13/23 documented as of this encounter
--- OUTSIDE RECORDS SUMMARY | 2024-07-01 22:38 | External Medical Summary | Summary of Care ---
Author Name Unknown Organization [facility] Address [address] [facility] [address] Phone [phone] Care Team Providers Care Local Company Tanker Driver Name Role Phone Fidencio Thrasher MD Primary Care Provide r Reason for Visit * Reason Onset Date Comments Advice 02/29/2024 Encounter Details Date Type Department Care Team (Late st Contact Info) Description 02/29/2024 Telephone Family Medicine [address] [phone] Fidencio Thrasher MD [address] [place] [address] [place] [address] Advice Allergies No known active allergiesdocumented [...] mRNA, LNP-s, No Pre serve, 2-Dose Series ([employer]) 06/23/2021,06/02/2021 Seasonal Influenza, PF, 6 M & [...] [facility] # [phone] regarding CDL physical and doctors name needed on form for medication Citalopram Hydrobromide 10 MG Oral Tablet (CeleXA) Contact Information [phone] documented in this encounter Plan of Treatment Upcoming Encounters Date Type Department Care Team (Late st Contact Info) Description 08/01/2024 8:00 AM EST Office Visit Family Medicine [address] [place] [phone] Fidencio Thrasher MD [address] [place] [address] [place] [address] Scheduled Procedures Name Priority Associated Diagnoses Date/Ti [...] Screening 05/19/2021 05/19/2020 COVID-19 Vaccine (3 - 2022- season) 2023 06/23/2021, 06/02/2021 Influenza Vaccine (FLU shot) (#1) 2024 06/13/2023, 03/24/2022, 06/01/2021, Additional history exists HbA1c 06/13/2024 12/13/2023, 1210/2022, 11/29/2022, Additional history exists Albumin/Creatinine Ratio 12/12/2024 [...] filedocumented as of this encounter Care Teams Local Company Tanker Driver Relationship Specialty Start Date End Date Fidencio Thrasher MD [address] [place] [address] [place] [address] PCP - General Family Medicine 06/13/23 documented as of this encounter
--- OUTSIDE RECORDS SUMMARY | 2024-07-01 22:38 | External Medical Summary | Summary of Care ---
Author Name Unknown Organization [facility] Address [address] [place] [address] Phone [phone] Care Team Providers Care Drum Maker Name Role Phone Fidencio Thrasher MD Primary Care Provide r Encounter Details Date Type Department Care Team (Late st Contact Info) Description 02/21/2024 Orders Only Radiology [address] [place] [id number] Requisition, External Radiology [address] [place] [address] DJD (degenerative joint disease) of cervical spine*; Numbness; Carpal tunnel syndrome; Family history of stroke Allergies No known active allergiesdocumented as of this encounter (statuses as of 02/21/2024) Medications Medication Sig Dispensed Refills Start Date [...] as of this encounter (statuses as of 02/21/2024) Active Problems Problem Noted Date Diagnosed Date [...] as of this encounter (statuses as of 02/21/2024) Resolved Problems Problem Noted Date Diagnosed Date [...] as of this encounter (statuses as of 02/21/2024) Immunizations Name Administration Dates Next Due COVID-19 mRNA, LNP-s, No Pre serve, 2-Dose Series ([employer]) 06/23/2021,06/02/2021 Seasonal Influenza, PF, 6 M & [...] on file documented as of this encounter Plan of Treatment Upcoming Encounters Date Type Department Care Team (Late st Contact Info) Description 02/29/2024 8:30 AM EDT Imaging Cardiac Studies, [facility] [address] [place] [address] 08/01/2024 8:00 AM EST Office Visit Family Medicine [address] [place] [phone] Fidencio Thrasher MD [address] [place] [address] [place] [address] Pending Results Name Type Priority Associated Diagnoses Date /Time XR C SPINE 6 OR MORE VIEWS Medical Imaging Routine DJD (degenerative joint disease) of cervical spine Numbness Carpal tunnel syndrome Family history of stroke 02/21/2024 4:02 PM EDT Scheduled Procedures Name Priority Associated Diagnoses Date/Ti [...] 06/01/2021, Additional history exists HbA1c 06/13/2024 12/13/2023, 120 10/2022, 11/29/2022, Additional [...] as of this encounter Visit Diagnoses Diagnosis DJD (degenerative joint disease) of cervical spine- Primary Cervical spondylosis without myelopathy Numbness Disturbance of skin sensation Carpal tunnel syndrome Family history of stroke Family history of stroke (cerebrovascular) documented in this encounter Care Teams Drum Maker Relationship Specialty Start Date End Date Fidencio Thrasher MD [address] [place] [address] [place] [address] PCP - General Family Medicine 06/13/23 documented as of this encounter
--- OUTSIDE RECORDS SUMMARY | 2024-07-01 22:39 | External Medical Summary | Summary of Care ---
Author Name Unknown Organization [facility] Address [address] [facility] [place] [address] Phone [phone] Care Team Providers Care Ski Base Trimmer Name Role Phone Fidencio Thrasher MD Primary Care Provide r Reason for Visit * Reason Onset Date Comments Medication Refill 01/06/2024 Encounter Details Date Type Department Care Team (Late st Contact Info) Description 01/06/2024 Refill Family Medicine [address] [phone] Fidencio Thrasher MD [address] [place], [place] [address] [address] Acute stress disorder Allergies No known active allergiesdocumented as of this encounter (statuses as of 01/09/2024) Medications Medication Sig Dispensed Refills Start Date End Date Status ONETOUCH ULTRA TEST STRPIndications:DM type 2, not at goal (HCC) daily 100 11 06/19/2009 Active Rosuvastatin Calcium 5 MG Oral Tablet (Crestor)Indicatio ns:Dyslipidemia, goal LDL below 100 TAKE 1 TABLET BY MOUTH 3 TIMES A WEEK (TUESDAY, TUESDAY & TUESDAY) 36 Tablet 1 11/22/2023 Active Pioglitazone HCl 30 MG Oral Tablet (Actos)Indications :Type 2 diabetes mellitus with hemoglobin A1c goal of less than 7.0% (HCC) TAKE 1 TABLET BY MOUTH EVERY DAY IN THE MORNING 90 Tablet 3 12/28/2023 Active Lisinopril 30 MG Oral TabletIndications: Type 2 diabetes mellitus with hemoglobin A1c goal of less than 7.0% ([facility]),Primary hypertension TAKE 1 TABLET BY MOUTH EVERY DAY IN THE MORNING 90 Tablet 3 12/28/2023 Active Citalopram Hydrobromide 10 MG Oral Tablet (CeleXA)Indication s:Acute stress disorder Take 1 Tablet by mouth in the morning. 90 Tablet 1 01/09/2024 Active Citalopram Hydrobromide 10 MG Oral Tablet (CeleXA)Indication s:Acute stress disorder Take 1 Tablet by mouth in the morning. 30 Tablet 5 12/13/2023 01/06/2024 Discontinue d(Refill) documented as of this encounter (statuses as of 01/09/2024) Active Problems Problem Noted Date Diagnosed Date [...] as of this encounter (statuses as of 01/09/2024) Resolved Problems Problem Noted Date Diagnosed Date [...] as of this encounter (statuses as of 01/09/2024) Immunizations Name Administration Dates Next Due COVID-19 mRNA, LNP-s, No Pre serve, 2-Dose Series ([employer]) 06/23/2021,06/02/2021 Seasonal Influenza, PF, 6 M & [...] encounter Miscellaneous Notes * Telephone Encounter - Teetee Jiang MD - 01/09/2024 6:39 PM EDT Signed Prescriptions: Disp Refills Citalopram Hydrobromide 10 MG Oral Tablet *90 Tab*1 Sig: Take 1 Tablet by mouth in the morning. Authorizing Provider: TEETEE JIANG * Telephone Encounter - Yesenia Singletary CMA - 01/09/2024 8:16 AM EDTPending Prescriptions: Disp Refills Citalopram Hydrobromide 10 MG Oral Tablet *90 Tab*1 Sig: Take 1 Tablet by mouth in the morning. * Telephone Encounter - Yesenia Singletary CMA - 01/09/2024 8:15 AM EDT 90 day refills pended * Telephone Encounter - Tere Carter OSA - 01/06/2024 11:49 AM EDT Did you pend patient's preferred pharmacy and medication before forwarding?yes Pharmacy: [id number] [id number] [facility] 90 day Pending Prescriptions: Disp Refills Citalopram Hydrobromide 10 MG Oral Tablet*30 Tab*5 Sig: Take 1 Tablet by mouth in the morning. Last Visit: 12/13/2023 (in office), Visit date not found (telemedicine) Next Visit: 08/01/2024 If no future appointments scheduled, and last appointment is greater than a year ago, please schedule patient for a follow-up appointment Last date the medication was ordered: 6.24 Is this request for a controlled substance?No Urine Drug Screen:No results found for this or any previous visit. Patient Phone Numbers Labs: Lab Results Component Value Date/Time CREAT 1.0 12/13/2023 11:59 AM CREAT 0.9 02/05/2020 02:43 PM POTASSIUM 4.4 12/13/2023 11:59 AM POTASSIUM 4.4 02/05/2020 02:43 PM TSH 1.79 12/13/2023 11:59 AM LDLCALC 99 06/13/2023 02:24 PM LDLCALC 118 02/05/2020 02:43 PM LDLDIRECT NOT APPLICABLE 02/05/2020 02:43 PM LDLDIRECT 133 (H) 02/05/2020 02:43 PM ALT 28 06/13/2023 02:24 PM ALT 30 02/20/2010 09:16 AM HGBA1C 6.6 (H) 12/13/2023 11:59 AM HGBA1C 6.0 (H) 08/29/2019 11:32 AM documented in this encounter Plan of Treatment Upcoming Encounters Date Type Department Care Team (Late st Contact Info) Description 02/29/2024 8:30 AM EDT Imaging Cardiac Studies, [facility] [address] [place] [address] 08/01/2024 8:00 AM EST Office Visit Family Medicine [address] [place] [phone] Fidencio Thrasher MD [address] [place] [address] [place] [address] Scheduled Procedures Name Priority Associated Diagnoses Date/Ti [...] 11/29/2022, Additional history exists Albumin/Creatinine Ratio 12/12/2024 0604/2 024, 11/29/2022, 11/30/2021, Additional history exists Diabetic [...] Discontinued 02/10/2022, 02/10/2022, 02/10/2022, Additional history exists GARDASIL-HPV IMMUNIZATION SERIES Aged Out No longer eligible based on patient's age to complete this topic Hepatitis B Aged Out No longer eligi ble based on patient's age to complete this topic MENINGOCOCCAL (MENACTRA/MENVEO) Aged Out No longer eligible based on patient's age to complete this topic documented as of this encounter Medical Devices Not on filedocumented as of this encounter Visit Diagnoses Diagnosis Acute stress disorder Other acute reactions to stress documented in this encounter Care Teams Ski Base Trimmer Relationship Specialty Start Date End Date Fidencio Thrasher MD [address] [place] [address] [place] [address] PCP - General Family Medicine 06/13/23 documented as of this encounter
--- NOTE | 2024-07-01 22:44 | Emergency Department Note ---
Impression & Plan Stroke-like symptoms, Thrombolytic medication administered within last 5 days, Hypertension, Right sided numbness ED Provider Note NAME: REED MARINA AGE: 64 SEX: M : 1960 ARRIVES VIA: Ambulance INFORMANT: Patient ED PROVIDER(S): Tian Penny MD CHIEF COMPLAINT: Acute onset right sided numbness and weakness, Stroke alert. PLAN: Disposition: Admit MEDICAL DECISION MAKING: The patient is a pleasant 64-year-old gentleman with a past medical history of hypertension, hyperlipidemia, diabetes who presents to the emergency department via EMS as a stroke alert after the patient reports developing acute onset right-sided numbness and weakness at 2130. He reports just prior to this he had no symptoms. Patient ports he was sitting on his couch looking at his phone for some time when the symptoms began. He reports the numbness began initially in his right flank/abdominal region and then extended to his right upper extremity and right lower extremity. Reports he was unable to walk without dragging his leg due to the symptoms. Upon arrival emergency department the patient was taken directly to CT for imaging. Upon my assessment in the room the patient reported symptoms have been significantly improved since arriving where he reports only residual subjective numbness and tingling in his right upper and right lower extremity. Patient is afebrile with blood pressure initially 150/110s and vital signs otherwise stable. He exhibits no objective focal neurologic deficits. Sensation is grossly intact to light touch in all extremities though with subjective numbness and tingling reported. 5/5 strength x 4 extremities. Speech is fluent. Cranial nerves II-XII grossly intact. EKG without overt acute ischemia. CXR negative for acute cardiopulmonary process per my personal preliminary review/interpretation. WBC and platelets within normal limits. H/H similar to prior. Platelets within normal limits. Chemistry without metabolic acidosis. Electrolytes LFTs unremarkable. Has to be troponin 7.2, within normal limits. UA without evidence of infection. CT of the head and CTA of the head and neck were performed and were negative for ischemia, ICH or severe narrowing or occlusion of large vessels. Case was discussed with Dr. Burris, [facility] [place], [place] telestroke neurology. Appreciate consultation, telestroke assessment via telestroke terminal, and recommendations. Given the patient reports continued paresthesias and he is within the TNK window, recommends TNK at this time. Patient does consent to this. BP within range. TNK subsequently administered. Case was discussed with Dr. Moran, [facility], who will evaluate the patient for admission. Further management per admitting team. Triage Nursing notes reviewed and agree them. Prior/external medical records reviewed Vital Signs: reviewed Differential diagnosis: Infection, dehydration, metabolic abnormality, hypo/hyperglycemia, electrolyte disturbance, anemia, hypoxia, cardiac sources, intracerebral event, toxicologic, neurologic, as well as other pathologies. ER treatment provided: See below. Diagnostics interpreted by me: ECG: Normal sinus rhythm, 69 bpm, no ectopy, no overt ST elevation or depression, QTc 416, QRS 80. Cardiac Monitoring: An order for continuous cardiac monitoring was placed and demonstrated Normal sinus rhythm, 69 bpm, no ectopy. Laboratory studies: See below Imaging studies: See below Consultation(s): Dr. Burris, [facility] [place] [place] telestroke neurology. Dr. Moran, [facility]. HPI: The patient is a pleasant 64-year-old gentleman with a past medical history of hypertension, hyperlipidemia, diabetes who presents to the emergency department via EMS as a stroke alert after the patient reports developing acute onset right-sided numbness and weakness at 2130. He reports just prior to this he had no symptoms. Patient ports he was sitting on his couch looking at his phone for some time when the symptoms began. He reports the numbness began initially in his right flank/abdominal region and then extended to his right upper extremity and right lower extremity. Reports he was unable to walk without dragging his leg due to the symptoms. ROS: See above HPI for pertinent positives & negatives. A total of 10 systems reviewed and were otherwise negative. VITALS:See Below PHYSICAL EXAMINATION: GENERAL: Awake, alert, in no distress, BMI 50.0. HENT: Normocephalic, atraumatic. Oropharynx with dry mucous membranes and otherwise unremarkable. EYES: Normal conjunctiva. Sclera non-icteric. EOMI. No nystamgus. PEARRL. NECK: Supple. No nuchal rigidity. FROM. No JVD. RESPIRATORY: Clear to auscultation. CARDIAC: Regular rate, normal rhythm. Extremities warm and well perfused. Pulses equal. ABDOMEN: Soft, non-distended. No tenderness to palpation. No rebound or guarding. No masses. MUSCULOSKELETAL: Chest examination reveals no tenderness. The back is symmetrical on inspection without obvious abnormality. There is no CVA tenderness to palpation. No joint edema. LOWER EXTREMITIES: Calves are equal size bilaterally and non-tender. No edema. No discoloration. NEURO: No focal objective sensory or motor deficits noted. 5/5 strength and SILT x 4 extremities. Mild residual subjective RUE, right abdominal, and RLE paraesthesias reported. Cerebellar function intact including [id number], alternating palms, [id number]. SKIN: No rash or jaundice noted. ED COURSE: Critical Care: I have personally spent greater than 35 minutes of critical care time in the direct management of this patient. This includes bedside care, interpretation of diagnostic studies, and testing, discussion with consultants, patient, and family members, and other required patient management activities. This 35 minutes is in excess of all separately billable procedures. Tian Penny MD Past Med/Surg History Problem List (Updated 07/02/24 @ 02:07 by Tian Penny MD) Right sided numbness (Acute) Hypertension (Acute) Thrombolytic medication administered within last 5 days (Acute) Stroke-like symptoms (Acute) History of colon polyps Encounter for pre-operative examination Medical History History of anesthesia reaction WITH PRIOR COLONOSCOPY > 5 YR AGO, [facility] - PT WAS TOLD HE GAVE ANESTHESIA FITS RELATING TO SLEEP APNEA/ NO KNOWN FURTHER DETAILS. PT REPORTS HE IS SLOWER TO WAKE UP. History of colon polyps ORIGINAL AROUND AGE 49 , HAD POLYPS/ BENIGN F/U COLONOSCOPY NO POLYPS Sleep apnea CPAP Borderline high blood pressure Diabetes Surgical History History of cholecystectomy History of colonoscopy Family History Brother Family history of diabetes mellitus Mother Family history of diabetes mellitus Grandmother Family history of diabetes mellitus Grandfather Family history of diabetes mellitus Social History Smoking Status: Former smoker Do You Dip or Chew Tobacco: Yes (1.5 CANS PER WEEK/ADVISED NPO); Hx Alcohol Use: Yes Alcohol type: beer and hard liquor Preferred Language: Hungarian Communication Ability: Effective Hypnotherapist Required: No Beliefs That Will Affect Care: None Current Living Situation: Spouse and Family Current Living Situation Comment: [facility] Feels Safe at Home: Yes Assistive Devices: CPAP Allergies Allergies Allergy/AdvReac Type Severity Reaction Status Date / Time No Known Allergies Allergy Verified 02/10/22 08:16 Home Meds Home Medications Medication Instructions Recorded Confirmed lisinopril 10 mg tablet 10 mg PO QAM 02/05/22 07/01/24 pioglitazone 30 mg tablet (Actos) 30 mg PO QAM 02/05/22 07/01/24 citalopram 10 mg tablet 10 mg PO 1XD 07/01/24 07/01/24 rosuvastatin 5 mg tablet 5 mg PO 3XWK 07/01/24 07/01/24 Results & Data (ED) Vital Signs Vital Signs - 24 hr 07/01/24 22:46 07/01/24 22:54 07/01/24 23:03 Temperature 37.1 C Temperature Source Oral Pulse Rate 69 69 Pulse Rate [Right Finger] Respiratory Rate 20 Respiratory Effort / Characteristics Non-Labored Spontaneous Respiratory Depth Normal Respiratory Pattern Regular Blood Pressure 153/115 H Blood Pressure [Right Arm] Blood Pressure Mean 127 Blood Pressure Mean [Right Arm] Pulse Oximetry 98 93 Oxygen Delivery Method Room Air Room Air Sepsis Recent Fever Within 48 Hours No Sepsis New/Unexplained Change in Mental Status No Sepsis Action Taken by Nursing No Action Required 07/01/24 23:20 07/01/24 23:30 07/01/24 23:45 Temperature Temperature Source Pulse Rate 60 65 Pulse Rate [Right Finger] 58 L Respiratory Rate 18 20 18 Respiratory Effort / Characteristics Respiratory Depth Respiratory Pattern Blood Pressure 155/91 H 167/80 H Blood Pressure [Right Arm] 146/74 H Blood Pressure Mean 112 109 Blood Pressure Mean [Right Arm] 98 Pulse Oximetry 98 96 96 Oxygen Delivery Method Room Air Sepsis Recent Fever Within 48 Hours Sepsis New/Unexplained Change in Mental Status Sepsis Action Taken by Nursing 07/02/24 00:00 07/02/24 00:15 07/02/24 00:30 Temperature Temperature Source Pulse Rate Pulse Rate [Right Finger] 60 58 L 62 Respiratory Rate 20 20 20 Respiratory Effort / Characteristics Respiratory Depth Respiratory Pattern Blood Pressure Blood Pressure [Right Arm] 150/74 H 162/76 H 160/72 H Blood Pressure Mean Blood Pressure Mean [Right Arm] 99 104 101 Pulse Oximetry 97 97 96 Oxygen Delivery Method Room Air Room Air Room Air Sepsis Recent Fever Within 48 Hours Sepsis New/Unexplained Change in Mental Status Sepsis Action Taken by Nursing 07/02/24 00:45 07/02/24 01:00 07/02/24 01:15 Temperature Temperature Source Pulse Rate Pulse Rate [Right Finger] 62 61 60 Respiratory Rate 18 18 18 Respiratory Effort / Characteristics Respiratory Depth Respiratory Pattern Blood Pressure Blood Pressure [Right Arm] 158/76 H 177/81 H 156/91 H Blood Pressure Mean Blood Pressure Mean [Right Arm] 103 113 112 Pulse Oximetry 97 97 97 Oxygen Delivery Method Room Air Room Air Room Air Sepsis Recent Fever Within 48 Hours Sepsis New/Unexplained Change in Mental Status Sepsis Action Taken by Nursing 07/02/24 01:30 07/02/24 02:00 Temperature Temperature Source Pulse Rate Pulse Rate [Right Finger] 64 62 Respiratory Rate 18 18 Respiratory Effort / Characteristics Respiratory Depth Respiratory Pattern Blood Pressure Blood Pressure [Right Arm] 145/68 H 136/71 Blood Pressure Mean Blood Pressure Mean [Right Arm] 93 92 Pulse Oximetry 97 96 Oxygen Delivery Method Room Air Room Air Sepsis Recent Fever Within 48 Hours Sepsis New/Unexplained Change in Mental Status Sepsis Action Taken by Nursing Laboratory Data Attestation: I reviewed the patient's lab results. 07/01/24 22:45 07/01/24 22:45 Lab Results 07/01/24 07/02/24 07/02/24 Range/Units 22:45 00:53 01:06 WBC 9.08 (4.8-10.8) K/ul RBC 4.55 L (4.70-6.10) M/uL Hgb 13.3 L (14.0-18.0) g/dl Hct 40.3 L (42.0-52.0) % MCV 88.6 (80.0-100.0) fL MCH 29.2 (25.0-34.0) pg MCHC 33.0 (32.0-36.0) g/dL RDW Std Deviation 45.8 (36.4-46.3) fL RDW Coeff of Michael 14.2 (11.5-14.5) % Plt Count 208 (130-400) K/uL MPV 9.7 (9.4-12.4) fL Immature Gran % (Auto) 0.6 % Neut % (Auto) 69.2 % Lymph % (Auto) 18.2 % [place] % (Auto) 7.8 % Eos % (Auto) 3.6 % Baso % (Auto) 0.6 % Neut # (Auto) 6.29 (1.40-6.50) K/uL Lymph # (Auto) 1.65 (1.20-3.40) K/uL [place] # (Auto) 0.71 H (0.11-0.59) K/uL Eos # (Auto) 0.33 (0.00-0.50) K/uL Baso # (Auto) 0.05 (0.00-0.20) K/uL Immature Gran # (Auto) 0.05 (0.01-0.20) K/uL PT 10.5 (9.0-12.0) Seconds INR 1.0 (0.9-1.1) APTT 27 (21-31) Seconds PTT Ratio 1.0 Sodium 139 (136-145) mmol/L Potassium 4.1 (3.5-5.1) mmol/L Chloride 105 (98-107) mmol/L Carbon Dioxide 28 (21-32) mmol/L Anion Gap 6 (3-11) BUN 21 (6-23) mg/dl Creatinine 0.90 (0.6-1.4) mg/dl Est Cr Clr Drug Dosing 116.5 ml/min eGFR 94.78 BUN/Creatinine Ratio 23.3 H (10-20) Glucose 159 H (70-99(Fasting)) mg/dl POC Glucose 126 H (70-99) mg/dl Calcium 8.4 L (8.6-10.3) mg/dl Magnesium 1.9 (1.7-2.4) mg/dl Total Bilirubin 0.5 (0.2-1.0) mg/dl AST 17 (13-39) U/L ALT 22 (7-52) U/L Alkaline Phosphatase 57 (34-104) U/L Troponin I High Sens 7.2 (0-20) pg/ml Total Protein 6.5 (6.0-8.3) gm/dl Albumin 4.1 (3.4-5.0) gm/dl Globulin 2.4 L (2.5-4.0) gm/dl Albumin/Globulin Ratio 1.7 (0.9-2) Urine Color Yellow Urine Appearance Clear (Clear) Urine pH 5.5 (4.5-7.5) Ur Specific [place] > 1.045 H (1.000-1.030) Urine Protein Negative (Negative) Urine Glucose (UA) Negative (Negative) Urine Ketones Negative (Negative) Urine Blood Negative (Negative) Urine Nitrite Negative (Negative) Urine Bilirubin Negative (Negative) Urine Urobilinogen Positive H (Negative) Ur Leukocyte Esterase Negative (Negative) Administered Medications Discontinued Medications Sodium Chloride (Nss) 500 mls @ 999 mls/hr IV .Q31M ONE Stop: 07/01/24 23:37 Last Infusion: 07/02/24 00:04 Dose: Infused Documented By: Admin: 07/01/24 23:33 Dose: 999 mls/hr Documented By: WHITNEY Tenecteplase 25 mg/ Syringe 5 mls @ 60 mls/min IV NOW ONE; Protocol Stop: 07/01/24 23:31 Last Admin: 07/01/24 23:30 Dose: 60 mls/min Documented By: WHITNEY Co-signed By: EMILIANO Ioversol (Optiray 320 125ml) 120 ml IV ONCE ONE Stop: 07/01/24 22:36 Last Admin: 07/01/24 22:36 Dose: 120 ml Documented By: AVINASH Sodium Chloride (Sodium Chloride 0.9% 10ml Flush) 20 ml IV NOW STA Stop: 07/01/24 23:20 Last Admin: 07/01/24 23:31 Dose: 20 ml Documented By: WHITNEY Imaging Data Radiologist's Impression: Head CT 07/01/24 22:29 CR Exam(s): CT HEAD Without Contrast EXAM: CT Head Without Intravenous Contrast CLINICAL HISTORY: Reason for exam: neuro deficit, acute stroke suspected. TECHNIQUE: Axial computed tomography images of the head/brain without intravenous contrast. CTDI is 15.52 mGy and DLP is 575.07 mGy-cm. Automated exposure control was utilized for the study. A dose lowering technique was utilized adhering to the principles of ALARA. COMPARISON: No relevant prior studies available. FINDINGS: Brain: Mild cerebral atrophy. The brain is otherwise unremarkable. No acute large vessel infarct or intracranial hemorrhage is seen. Ventricles: Unremarkable. No ventriculomegaly. Bones/joints: Unremarkable. No acute fracture. Soft tissues: Unremarkable. Sinuses: Unremarkable as visualized. No acute sinusitis. Mastoid air cells: Unremarkable as visualized. No mastoid effusion. IMPRESSION: Mild cerebral atrophy. The brain is otherwise unremarkable. No acute large vessel infarct or intracranial hemorrhage is seen. Communications: Call Doctor Stroke Electronically signed by: Oumar Vila MD 07/01/24 22:56 PM Head CTA 07/01/24 22:29 CR Exam(s): CTA HEAD With Contrast IV Amt: OPTIRAY 320 120ML EXAM: CT Angiography Head With Intravenous Contrast CLINICAL HISTORY: Reason for exam: neuro deficit, acute stroke suspected. TECHNIQUE: Axial computed tomographic angiography images of the head with intravenous contrast. CTDI is 33.21 mGy and DLP is 16.61 mGy-cm. Automated exposure control was utilized for the study. A dose lowering technique was utilized adhering to the principles of ALARA. MIP reconstructed images were created and reviewed. CONTRAST: Patient received OPTIRAY 320 120ML of IV contrast COMPARISON: No relevant prior studies available. FINDINGS: Right internal carotid artery: Mild calcified plaque in the distal right internal carotid artery causing 20% stenosis. No aneurysm. Right anterior cerebral artery: Unremarkable. No occlusion or significant stenosis. No aneurysm. Right middle cerebral artery: Unremarkable. No occlusion or significant stenosis. No aneurysm. Right posterior cerebral artery: Normally anatomic variant of origin of the right posterior cerebral artery from the anterior circulation. No occlusion or significant stenosis. No aneurysm. Right vertebral artery: The distal right vertebral artery is small with much of the flow terminating into the PICA. This is a normal variant. Left internal carotid artery: No acute findings. Intracranial segment is patent with no significant stenosis. No aneurysm. Left anterior cerebral artery: Unremarkable. No occlusion or significant stenosis. No aneurysm. Left middle cerebral artery: Unremarkable. No occlusion or significant stenosis. No aneurysm. Left posterior cerebral artery: Unremarkable. No occlusion or significant stenosis. No aneurysm. Left vertebral artery: Unremarkable as visualized. Basilar artery: Unremarkable. No occlusion or significant stenosis. No aneurysm. Other vasculature: Mild calcified plaque in the distal left internal: Artery causing 20% stenosis. IMPRESSION: No acute findings in the arteries of the head/brain. Communications: Call Doctor Stroke Electronically signed by: Oumar Vila MD 07/01/24 23:01 PM Neck CTA 07/01/24 22:29 CR Exam(s): CTA NECK With Contrast IV Amt: 120ML OPTIRAY 320 EXAM: CT Angiography Neck With Intravenous Contrast CLINICAL HISTORY: Reason for exam: neuro deficit, acute stroke suspected. TECHNIQUE: Routine carotid CT angiography protocol was performed with intravenous contrast. NASCET criteria using the distal ICAs for comparison were used for evaluation of stenoses. CTDI is 33.21 mGy and DLP is 16.61 mGy-cm. Automated exposure control was utilized for the study. A dose lowering technique was utilized adhering to the principles of ALARA. MIP reconstructed images were created and reviewed. CONTRAST: Patient received 120ML OPTIRAY 320 of IV contrast COMPARISON: None. FINDINGS: VASCULATURE: Right common carotid artery: Unremarkable. No occlusion or significant stenosis. No dissection. Right internal carotid artery: Small amount of calcified plaque in the right proximal internal carotid artery causing 20% stenosis. No dissection. Right external carotid artery: Unremarkable. No occlusion. Right vertebral artery: The right vertebral artery is congenitally small but patent. No occlusion or significant stenosis. No dissection. Left common carotid artery: Unremarkable. No occlusion or significant stenosis. No dissection. Left internal carotid artery: Small amount of calcified plaque in the proximal left internal carotid artery causing less than 20% stenosis. No dissection. Left external carotid artery: Unremarkable. No occlusion. Left vertebral artery: Unremarkable. No occlusion or significant stenosis. No dissection. Aorta: The aortic arch is slightly calcified but nondilated. There is no aneurysm or dissection. NECK: Bones/joints: Mild degenerative changes throughout the cervical spine. There is straightening of the normal cervical curvature. No acute fracture or subluxation is seen. Soft tissues: Unremarkable. Lung apices: Clear. CAROTID STENOSIS REFERENCE USING NASCET CRITERIA: % ICA stenosis = (1 - narrowest ICA diameter/diameter of distal cervical ICA) x 100. Mild - <50% stenosis. Moderate - 50-69% stenosis. Severe - 70-94% stenosis. Near occlusion - 95-99% stenosis. Occluded - 100% stenosis. IMPRESSION: No acute findings in the arteries of the neck. Communications: Call Doctor Stroke Electronically signed by: Oumar Vila MD 07/01/24 22:58 PM Discharge Plan Visit Data Chief Complaint: Stroke Alert Stated Complaint: R SIDED NUMBNESS, DRAGGING LEG ED Provider: Tian Penny Discharge Problem: Stroke-like symptoms, Thrombolytic medication administered within last 5 days, Hypertension, Right sided numbness Patient Disposition: Admitted As Inpatient Discharge Instructions Interventions: ED Discharge Assessment Last Done: 07/02/24 01:57 Forms Stand Alone Forms: [facility] Prescriptions Prescriptions: No Action lisinopril 10 mg Tablet 10 mg PO QAM pioglitazone [Actos] 30 mg Tablet 30 mg PO QAM citalopram 10 mg tablet 10 mg PO 1XD rosuvastatin 5 mg tablet 5 mg PO 3XWK Referrals Referrals: Adi Elam MD [Outside Practitioners] - Discharge Problem: Hypertension Qualifiers: Hypertension type: unspecified Qualified Code(s): I10 - Essential (primary) hypertension
--- NOTE | 2024-07-01 22:57 | CT Scan Report ---
Exam(s): CT HEAD Without Contrast EXAM: CT Head Without Intravenous Contrast CLINICAL HISTORY: Reason for exam: neuro deficit, acute stroke suspected. TECHNIQUE: Axial computed tomography images of the head/brain without intravenous contrast. CTDI is 15.52 mGy and DLP is 575.07 mGy-cm. Automated exposure control was utilized for the study. A dose lowering technique was utilized adhering to the principles of ALARA. COMPARISON: No relevant prior studies available. FINDINGS: Brain: Mild cerebral atrophy. The brain is otherwise unremarkable. No acute large vessel infarct or intracranial hemorrhage is seen. Ventricles: Unremarkable. No ventriculomegaly. Bones/joints: Unremarkable. No acute fracture. Soft tissues: Unremarkable. Sinuses: Unremarkable as visualized. No acute sinusitis. Mastoid air cells: Unremarkable as visualized. No mastoid effusion. IMPRESSION: Mild cerebral atrophy. The brain is otherwise unremarkable. No acute large vessel infarct or intracranial hemorrhage is seen. Communications: Call Doctor Stroke Electronically signed by: Oumar Vila MD 07/01/24 22:56 PM
--- NOTE | 2024-07-01 22:58 | CT Scan Report ---
Exam(s): CTA NECK With Contrast IV Amt: 120ML OPTIRAY 320 EXAM: CT Angiography Neck With Intravenous Contrast CLINICAL HISTORY: Reason for exam: neuro deficit, acute stroke suspected. TECHNIQUE: Routine carotid CT angiography protocol was performed with intravenous contrast. NASCET criteria using the distal ICAs for comparison were used for evaluation of stenoses. CTDI is 33.21 mGy and DLP is 16.61 mGy-cm. Automated exposure control was utilized for the study. A dose lowering technique was utilized adhering to the principles of ALARA. MIP reconstructed images were created and reviewed. CONTRAST: Patient received 120ML OPTIRAY 320 of IV contrast COMPARISON: None. FINDINGS: VASCULATURE: Right common carotid artery: Unremarkable. No occlusion or significant stenosis. No dissection. Right internal carotid artery: Small amount of calcified plaque in the right proximal internal carotid artery causing 20% stenosis. No dissection. Right external carotid artery: Unremarkable. No occlusion. Right vertebral artery: The right vertebral artery is congenitally small but patent. No occlusion or significant stenosis. No dissection. Left common carotid artery: Unremarkable. No occlusion or significant stenosis. No dissection. Left internal carotid artery: Small amount of calcified plaque in the proximal left internal carotid artery causing less than 20% stenosis. No dissection. Left external carotid artery: Unremarkable. No occlusion. Left vertebral artery: Unremarkable. No occlusion or significant stenosis. No dissection. Aorta: The aortic arch is slightly calcified but nondilated. There is no aneurysm or dissection. NECK: Bones/joints: Mild degenerative changes throughout the cervical spine. There is straightening of the normal cervical curvature. No acute fracture or subluxation is seen. Soft tissues: Unremarkable. Lung apices: Clear. CAROTID STENOSIS REFERENCE USING NASCET CRITERIA: % ICA stenosis = (1 - narrowest ICA diameter/diameter of distal cervical ICA) x 100. Mild - <50% stenosis. Moderate - 50-69% stenosis. Severe - 70-94% stenosis. Near occlusion - 95-99% stenosis. Occluded - 100% stenosis. IMPRESSION: No acute findings in the arteries of the neck. Communications: Call Doctor Stroke Electronically signed by: Oumar Vila MD 07/01/24 22:58 PM
--- NOTE | 2024-07-01 23:01 | CT Scan Report ---
Exam(s): CTA HEAD With Contrast IV Amt: OPTIRAY 320 120ML EXAM: CT Angiography Head With Intravenous Contrast CLINICAL HISTORY: Reason for exam: neuro deficit, acute stroke suspected. TECHNIQUE: Axial computed tomographic angiography images of the head with intravenous contrast. CTDI is 33.21 mGy and DLP is 16.61 mGy-cm. Automated exposure control was utilized for the study. A dose lowering technique was utilized adhering to the principles of ALARA. MIP reconstructed images were created and reviewed. CONTRAST: Patient received OPTIRAY 320 120ML of IV contrast COMPARISON: No relevant prior studies available. FINDINGS: Right internal carotid artery: Mild calcified plaque in the distal right internal carotid artery causing 20% stenosis. No aneurysm. Right anterior cerebral artery: Unremarkable. No occlusion or significant stenosis. No aneurysm. Right middle cerebral artery: Unremarkable. No occlusion or significant stenosis. No aneurysm. Right posterior cerebral artery: Normally anatomic variant of origin of the right posterior cerebral artery from the anterior circulation. No occlusion or significant stenosis. No aneurysm. Right vertebral artery: The distal right vertebral artery is small with much of the flow terminating into the PICA. This is a normal variant. Left internal carotid artery: No acute findings. Intracranial segment is patent with no significant stenosis. No aneurysm. Left anterior cerebral artery: Unremarkable. No occlusion or significant stenosis. No aneurysm. Left middle cerebral artery: Unremarkable. No occlusion or significant stenosis. No aneurysm. Left posterior cerebral artery: Unremarkable. No occlusion or significant stenosis. No aneurysm. Left vertebral artery: Unremarkable as visualized. Basilar artery: Unremarkable. No occlusion or significant stenosis. No aneurysm. Other vasculature: Mild calcified plaque in the distal left internal: Artery causing 20% stenosis. IMPRESSION: No acute findings in the arteries of the head/brain. Communications: Call Doctor Stroke Electronically signed by: Oumar Vila MD 07/01/24 23:01 PM
[2024-07-01 23:03] LABS: Basophils # (auto) 0.05 K/uL (0.00-0.20); Basophils % (auto) 0.6 %; Eosinophils # (auto) 0.33 K/uL (0.00-0.50); Eosinophils % (auto) 3.6 %; Hematocrit (blood only) 40.3 % (42.0-52.0); Hemoglobin 13.3 g/dl (14.0-18.0); Immature Granulocytes # (auto) 0.05 K/uL (0.01-0.20); Immature Granulocytes % (auto) 0.6 %; Lymphocytes # (auto) 1.65 K/uL (1.20-3.40); Lymphocytes % (auto) 18.2 %; Mean Corpuscular Hemoglobin 29.2 pg (25.0-34.0); Mean Corpuscular Volume 88.6 fL (80.0-100.0); Mean Platelet Volume 9.7 fL (9.4-12.4); Monocytes # (auto) 0.71 K/uL (0.11-0.59); Monocytes % (auto) 7.8 %; Neutrophils # (auto) 6.29 K/uL (1.40-6.50); Neutrophils % (auto) 69.2 %; Platelet Count 208 K/uL (130-400); RDW Coefficient of Variation 14.2 % (11.5-14.5); RDW Standard Deviation 45.8 fL (36.4-46.3); Red Blood Count 4.55 M/uL (4.70-6.10); White Blood Count 9.08 K/ul (4.8-10.8)
[2024-07-01 23:17] LABS: Albumin Globulin Ratio 1.7 (0.9-2); Albumin Level 4.1 gm/dl (3.4-5.0); BUN Creatinine Ratio 23.3 (10-20); Bilirubin,Total 0.5 mg/dl (0.2-1.0); Calcium 8.4 mg/dl (8.6-10.3); Creatinine Clr Calc Pharmacy 116.5 ml/min; Globulin 2.4 gm/dl (2.5-4.0); Magnesium 1.9 mg/dl (1.7-2.4); Potassium 4.1 mmol/L (3.5-5.1); Total Protein 6.5 gm/dl (6.0-8.3)
[2024-07-01 23:23] LABS: Troponin I High Sensitivity 7.2 pg/ml (0-20)
[2024-07-01] MEDS ORDERED: No Aspirin within 24hrs of THROMBOLYTIC-Stroke PO SCH (23:30)
[2024-07-01] MEDS: TENECTEPLASE 25 MG in SYRINGE 0 ML IV ONE (23:30)
[2024-07-01] MEDS: SODIUM CHLORIDE 0.9% 10ML FLUSH IV STA (23:31)
[2024-07-01] MEDS: SODIUM CHLORIDE 0.9% 500 ML IV ONE (23:33)
[2024-07-01 23:45] LABS: Partial Thromboplastin Time 27 Seconds (21-31); Prothrombin Time 10.5 Seconds (9.0-12.0)
[2024-07-02 01:05] LABS: Appearance Urine Clear (Clear); Bilirubin Urine Negative (Negative); Blood Urine Negative (Negative); Color Urine Yellow; Glucose Urine UA Negative (Negative); Ketones Urine Negative (Negative); Leukocyte Esterase Urine Negative (Negative); Nitrite Urine Negative (Negative); Protein Urine Negative (Negative); Specific Gravity Urine > 1.045 (1.000-1.030); Urobilinogen Urine Positive (Negative); pH Urine 5.5 (4.5-7.5)
--- NOTE | 2024-07-02 02:24 | XRay Report ---
EXAM: XR chest 1V portable CLINICAL HISTORY: NEURO DEFICIT ACUTE STROKE SUSPECTED JMF TECHNIQUE: An X-ray image of the chest is obtained in AP projection. COMPARISON: No prior studies are available for comparison. FINDINGS: Pulmonary Parenchyma: Chest leads are seen No evidence of consolidation, collapse, or focal opacities. No pulmonary nodules are identified. Mild blunting of both costophrenic angles seen Heart and Mediastinum: Heart size is mildly enlarged, however this is AP projection. No mediastinal widening or masses. Prominent both faviola likely due to vascular congestion. Aorta appears tortous Bony Thorax: Bony thorax appears intact without fractures or deformities. Soft Tissues: Soft tissues overlying the chest wall are unremarkable. IMPRESSION: No evidence of active pulmonary infection Bilateral hilar vascular congestive changes Mild cardiomegaly however this is AP projection. Mild blunting of both costophrenic angles, likely due to pleural thickening/effusion. Ultrasound correlation is advised Electronically signed by Parminder Gomez 07-02-2024 02:23 AM
[2024-07-02] MEDS ORDERED: CARBOHYDRATES FOR HYPOGLYCEMIA PO PRN (02:25)
[2024-07-02] MEDS ORDERED: PHARMACIST DISCHARGE MED REC CONSULT PRN (02:25)
[2024-07-02] MEDS ORDERED: LABETALOL HCL IV 5 MG/ML 20ML IV PRN (02:25)
[2024-07-02] MEDS ORDERED: GLUCOSE 10 TAB/TUBE PO PRN (02:25)
[2024-07-02] MEDS ORDERED: GLUCAGON FOR INJ 1 MG VIAL SQ PRN (02:25)
[2024-07-02] MEDS ORDERED: GLUCOSE 40% GEL 15 GM TUBE PO PRN (02:25)
[2024-07-02] MEDS ORDERED: DEXTROSE 50% 50 ML SYRINGE IV PRN (02:25)
[2024-07-02] MEDS: INSULIN ASPART PER UNIT CHARGE SC SCH ×2 (02:34→07:40)
[2024-07-02] MEDS: SODIUM CHLORIDE 0.9% 1,000 ML IV SCH (02:35)
--- NOTE | 2024-07-02 02:46 | Critical Care Consultation ---
Date of Consultation July 02, 2024 Assessment & Plan (1) Stroke-like symptoms: (2) Thrombolytic medication administered within last 5 days: (3) Sleep apnea: Plan Reason Critically Ill: 64 YOM Neuro - stroke like symptoms s/p thrombolytic administration, anxiety CAM ICU: NEGATIVE - NIHSS- 1 - decreased sensation of pin prick to right shoulder to elbow - Neuro exams q1h - Hydralazine for BP > 180 or DBP > 105- allow permissive HTN - CT head for any acute changes eval for hemorrhage - MRI when able - [address] non con head - ECHO with bubble - HGBa1C and lipid panel in the morning- defer adjustment of statin to primary service pending lipid profile and imaging results - DAPHNIE- patient compliant with CPAP per him and - continue with CPAP while in house - AutoPap or his own machine - Telemetry for 24 hours- consider extended outpatient monitoring if appropriate - ASA following 24 hours thrombolytics should be initiated - PT/OT eval Cardiac - no acute needs as above. - Hold lisinopril at this time to allow permissive HTN Respiratory - DAPHNIE - as above - no acute needs GI - No acute needs - deit as tolerated RENAL/LYTES - NO acute needs - No acute needs ENDO - DMII - HGBa1C in am- defer to primary service for management or adjustment based on levels - ICU hyperglycemic protocol goal < 180mg/dl HEME - No acute needs - follow for any signs/symptoms of hemorrhage following thrombolytics ID - NO concern at this time for infectious process LINES/IV ACCESS - Continue use of these lines DVT PROPHYLAXIS - SCDS, chemoprophylaxis contraindicated 24 hours post thrombolytics DISPO: ICU 24 hours post thrombolytics I have personally spent 40 minutes of time in the direct management of this patient. This is a life/limb threatening event. This includes time spent evaluating patient, direct bedside care, chart review, placing orders, interpretation of diagnostic studies, discussion with consultants, patient, and family members, as well as other required patient management activities. This time is exclusive of all separately billable procedures, and separate from and in addition to any other critical care service time. Thank you for allowing us to participate in the care of this patient. Please refer to my attending physician's documentation for any further recommendations. Supervising Physician Co-Signing Physician Notes TNK administered @ 2330, NIH 0, awaiting neurology consult. Anticipate downgrade tomorrow. History of Present Illness Reason for Consultation: Post thrombolytics for stroke like symptoms Requesting Physician: Felipe Moran MD Attending Physician: Ariadna Talbot MD History of Present Illness 64 YOM with medical history of: HTN, obesity, DAPHNIE on CPAP, DMII. Patient presents to the ER today for acute onset around 0 this evening of numbness and tingling of his right side. Patient reports that it started in his right mid thorax mid axillary line and then progressed to his face, right arm, and right leg. This was associated with "tunnel vision" of the right eye as well as decreased coordination of the right arm and leg. Patient denies any headaches, difficulty speaking, or weakness out of proportion from the paresthesias. He states that "it was like his body was cut in half" and one side could feel and the other couldn't. His is with him and assists in the history, she also did not appreciate any facial droop, dysarthria, or confusion in [place] with his symptoms. He was stroke alerted on the way to the hospital. He under went CTA of the head and neck, CT of the head, ECG, and routine labs performed. CTA of the head and neck was negative for any LVO or hemorrhage. Telestroke consultation was performed and he was deemed a thrombolytic candidate. Initial NIHSS was reported as 0. TNKase was administered at 2331. Patient will be brought to the ICU for post thrombolytic neurologic exams, hemodynamic monitoring and supportive care. CODE: FULL Allergies Allergy/AdvReac Type Severity Reaction Status Date / Time No Known Allergies Allergy Verified 02/10/22 08:16 Home Medications Medication Instructions Recorded Confirmed Type lisinopril 10 mg tablet 10 mg PO QAM 02/05/22 07/01/24 History pioglitazone 30 mg tablet (Actos) 30 mg PO QAM 02/05/22 07/01/24 History citalopram 10 mg tablet 10 mg PO 1XD 07/01/24 07/01/24 History rosuvastatin 5 mg tablet 5 mg PO 3XWK 07/01/24 07/01/24 History Patient History Medical History History of anesthesia reaction WITH PRIOR COLONOSCOPY > 5 YR AGO, [facility] - PT WAS TOLD HE GAVE ANESTHESIA FITS RELATING TO SLEEP APNEA/ NO KNOWN FURTHER DETAILS. PT REPORTS HE IS SLOWER TO WAKE UP. History of colon polyps ORIGINAL AROUND AGE 49 , HAD POLYPS/ BENIGN F/U COLONOSCOPY NO POLYPS Sleep apnea CPAP Borderline high blood pressure Diabetes Surgical History History of cholecystectomy History of colonoscopy Family History Brother Family history of diabetes mellitus Mother Family history of diabetes mellitus Grandmother Family history of diabetes mellitus Grandfather Family history of diabetes mellitus Social History Smoking Status: Never smoker Tobacco Type: Smokeless Tobacco (Dip or Chew) Second Hand Exposure: No; Do You Dip or Chew Tobacco: Yes; Tobacco Cessation Education Requested by Patient: No Hx Alcohol Use: Yes Alcohol type: hard liquor Hx Substance Use: No Preferred Language: German Communication Ability: Effective Paper Bundler Required: No Beliefs That Will Affect Care: None Current Living Situation: Spouse Current Living Situation Comment: lives w/ Other Information That Helps Us Care for You: No Feels Safe at Home: Yes Safety Concerns: Feels Safe At This Time Assistive Devices: CPAP Review of Systems Review of Systems: REVIEW OF SYSTEMS: Constitutional: No fever, sweats or chills Eyes: No diplopia, no worsening or blurred vision ENT: normal hearing, no trouble swallowing Respiratory: No cough, sputum, dyspnea at rest or on exertion Cardiovascular: No chest pain, tightness or palpitations Abdomen: No pain, nausea, vomiting, diarrhea or constipation Musculoskeletal: No joint pain, calf pain, swelling Neurologic: + numbness/tingling, or balance problems, No weakness, Psychiatric: No anxiety or depression Skin: No rash or itch Physical Exam Physical Exam: PHYSICAL EXAM: General: awake, alert, no apparent distress Head: Normocephalic, atraumatic ENT: PERRL, EOMI, no pharyngeal exudate, mucous membranes moist Neuro: AAO x 3, speech clear and appropriate, strength intact bilaterally 5/5, Decreased sensation of sharp and dull noted on right upper shoulder to elbow, differentiation of sharp and dull remain intact throughout other dermatomes, no pronator drift, no difficulty reading or writing, and no ataxia. Chest: equal rise and fall of the chest, no accessory muscle use, no heaves or thrills, Clear to auscultation, on room air, Cardiac: Regular rate and rhythm, telemetry reviewed- sinus bradycardia no ectopy, skin warm dry, cap refill <3 seconds, peripheral pulses +2 no JVD, no murmur, no edema GI: NABS x 4 quadrants, soft, nontender to palpation, no rebound, guarding or tenderness : Spontaneously voiding, no pain, no CVA tenderness, Psych: Normal mood and affect Results & Data Results & Data Vital Signs (Past 12 Hours) Vital Signs Temp Pulse Pulse Resp BP BP Pulse Ox 07/02/24 02:29 36.9 C 56 L 18 130/64 95 07/02/24 02:00 62 18 136/71 96 07/02/24 01:30 64 18 145/68 H 97 07/02/24 01:15 60 18 156/91 H 97 07/02/24 01:00 61 18 177/81 H 97 07/02/24 00:45 62 18 158/76 H 97 07/02/24 00:30 62 20 160/72 H 96 07/02/24 00:15 58 L 20 162/76 H 97 07/02/24 00:00 60 20 150/74 H 97 07/01/24 23:45 58 L 18 146/74 H 96 07/01/24 23:30 65 20 167/80 H 96 07/01/24 23:20 60 18 155/91 H 98 07/01/24 23:03 93 07/01/24 22:54 69 07/01/24 22:46 37.1 C 69 20 153/115 H 98 O2 Del Method 07/02/24 02:29 Room Air 07/02/24 02:00 Room Air 07/02/24 01:30 Room Air 07/02/24 01:15 Room Air 07/02/24 01:00 Room Air 07/02/24 00:45 Room Air 07/02/24 00:30 Room Air 07/02/24 00:15 Room Air 07/02/24 00:00 Room Air 07/01/24 23:45 Room Air 07/01/24 23:30 07/01/24 23:20 07/01/24 23:03 Room Air 07/01/24 22:54 07/01/24 22:46 Room Air Laboratory Results Abnormal lab results 07/01/24 07/02/24 07/02/24 Range/Units 22:45 00:53 01:06 RBC 4.55 L (4.70-6.10) M/uL Hgb 13.3 L (14.0-18.0) g/dl Hct 40.3 L (42.0-52.0) % Terry # (Auto) 0.71 H (0.11-0.59) K/uL BUN/Creatinine Ratio 23.3 H (10-20) Glucose 159 H (70-99(Fasting)) mg/dl POC Glucose 126 H (70-99) mg/dl Calcium 8.4 L (8.6-10.3) mg/dl Globulin 2.4 L (2.5-4.0) gm/dl Ur Specific [place] > 1.045 H (1.000-1.030) Urine Urobilinogen Positive H (Negative) 07/02/24 Range/Units 02:32 RBC (4.70-6.10) M/uL Hgb (14.0-18.0) g/dl Hct (42.0-52.0) % [place] # (Auto) (0.11-0.59) K/uL BUN/Creatinine Ratio (10-20) Glucose (70-99(Fasting)) mg/dl POC Glucose 123 H (70-99) mg/dl Calcium (8.6-10.3) mg/dl Globulin (2.5-4.0) gm/dl Ur Specific [place] (1.000-1.030) Urine Urobilinogen (Negative) Diagnostic Findings Chest X-Ray 07/01/24 22:29 EXAM: XR chest 1V portable CLINICAL HISTORY: NEURO DEFICIT ACUTE STROKE SUSPECTED JMF TECHNIQUE: An X-ray image of the chest is obtained in AP projection. COMPARISON: No prior studies are available for comparison. FINDINGS: Pulmonary Parenchyma: Chest leads are seen No evidence of consolidation, collapse, or focal opacities. No pulmonary nodules are identified. Mild blunting of both costophrenic angles seen Heart and Mediastinum: Heart size is mildly enlarged, however this is AP projection. No mediastinal widening or masses. Prominent both faviola likely due to vascular congestion. Aorta appears tortous Bony Thorax: Bony thorax appears intact without fractures or deformities. Soft Tissues: Soft tissues overlying the chest wall are unremarkable. IMPRESSION: No evidence of active pulmonary infection Bilateral hilar vascular congestive changes Mild cardiomegaly however this is AP projection. Mild blunting of both costophrenic angles, likely due to pleural thickening/effusion. Ultrasound correlation is advised Electronically signed by Parminder Gomez 07-02-2024 02:[address] 07/01/24 22:29 CR Exam(s): CT HEAD Without Contrast EXAM: CT Head Without Intravenous Contrast CLINICAL HISTORY: Reason for exam: neuro deficit, acute stroke suspected. TECHNIQUE: Axial computed tomography images of the head/brain without intravenous contrast. CTDI is 15.52 mGy and DLP is 575.07 mGy-cm. Automated exposure control was utilized for the study. A dose lowering technique was utilized adhering to the principles of ALARA. COMPARISON: No relevant prior studies available. FINDINGS: Brain: Mild cerebral atrophy. The brain is otherwise unremarkable. No acute large vessel infarct or intracranial hemorrhage is seen. Ventricles: Unremarkable. No ventriculomegaly. Bones/joints: Unremarkable. No acute fracture. Soft tissues: Unremarkable. Sinuses: Unremarkable as visualized. No acute sinusitis. Mastoid air cells: Unremarkable as visualized. No mastoid effusion. IMPRESSION: Mild cerebral atrophy. The brain is otherwise unremarkable. No acute large vessel infarct or intracranial hemorrhage is seen. Communications: Call Doctor Stroke Electronically signed by: Oumar Vila MD 07/01/24 22:56 PM Head CTA 07/01/24 22:29 CR Exam(s): CTA HEAD With Contrast IV Amt: OPTIRAY 320 120ML EXAM: CT Angiography Head With Intravenous Contrast CLINICAL HISTORY: Reason for exam: neuro deficit, acute stroke suspected. TECHNIQUE: Axial computed tomographic angiography images of the head with intravenous contrast. CTDI is 33.21 mGy and DLP is 16.61 mGy-cm. Automated exposure control was utilized for the study. A dose lowering technique was utilized adhering to the principles of ALARA. MIP reconstructed images were created and reviewed. CONTRAST: Patient received OPTIRAY 320 120ML of IV contrast COMPARISON: No relevant prior studies available. FINDINGS: Right internal carotid artery: Mild calcified plaque in the distal right internal carotid artery causing 20% stenosis. No aneurysm. Right anterior cerebral artery: Unremarkable. No occlusion or significant stenosis. No aneurysm. Right middle cerebral artery: Unremarkable. No occlusion or significant stenosis. No aneurysm. Right posterior cerebral artery: Normally anatomic variant of origin of the right posterior cerebral artery from the anterior circulation. No occlusion or significant stenosis. No aneurysm. Right vertebral artery: The distal right vertebral artery is small with much of the flow terminating into the PICA. This is a normal variant. Left internal carotid artery: No acute findings. Intracranial segment is patent with no significant stenosis. No aneurysm. Left anterior cerebral artery: Unremarkable. No occlusion or significant stenosis. No aneurysm. Left middle cerebral artery: Unremarkable. No occlusion or significant stenosis. No aneurysm. Left posterior cerebral artery: Unremarkable. No occlusion or significant stenosis. No aneurysm. Left vertebral artery: Unremarkable as visualized. Basilar artery: Unremarkable. No occlusion or significant stenosis. No aneurysm. Other vasculature: Mild calcified plaque in the distal left internal: Artery causing 20% stenosis. IMPRESSION: No acute findings in the arteries of the head/brain. Communications: Call Doctor Stroke Electronically signed by: Oumar Vila MD 07/01/24 23:01 PM Neck CTA 07/01/24 22:29 CR Exam(s): CTA NECK With Contrast IV Amt: 120ML OPTIRAY 320 EXAM: CT Angiography Neck With Intravenous Contrast CLINICAL HISTORY: Reason for exam: neuro deficit, acute stroke suspected. TECHNIQUE: Routine carotid CT angiography protocol was performed with intravenous contrast. NASCET criteria using the distal ICAs for comparison were used for evaluation of stenoses. CTDI is 33.21 mGy and DLP is 16.61 mGy-cm. Automated exposure control was utilized for the study. A dose lowering technique was utilized adhering to the principles of ALARA. MIP reconstructed images were created and reviewed. CONTRAST: Patient received 120ML OPTIRAY 320 of IV contrast COMPARISON: None. FINDINGS: VASCULATURE: Right common carotid artery: Unremarkable. No occlusion or significant stenosis. No dissection. Right internal carotid artery: Small amount of calcified plaque in the right proximal internal carotid artery causing 20% stenosis. No dissection. Right external carotid artery: Unremarkable. No occlusion. Right vertebral artery: The right vertebral artery is congenitally small but patent. No occlusion or significant stenosis. No dissection. Left common carotid artery: Unremarkable. No occlusion or significant stenosis. No dissection. Left internal carotid artery: Small amount of calcified plaque in the proximal left internal carotid artery causing less than 20% stenosis. No dissection. Left external carotid artery: Unremarkable. No occlusion. Left vertebral artery: Unremarkable. No occlusion or significant stenosis. No dissection. Aorta: The aortic arch is slightly calcified but nondilated. There is no aneurysm or dissection. NECK: Bones/joints: Mild degenerative changes throughout the cervical spine. There is straightening of the normal cervical curvature. No acute fracture or subluxation is seen. Soft tissues: Unremarkable. Lung apices: Clear. CAROTID STENOSIS REFERENCE USING NASCET CRITERIA: % ICA stenosis = (1 - narrowest ICA diameter/diameter of distal cervical ICA) x 100. Mild - <50% stenosis. Moderate - 50-69% stenosis. Severe - 70-94% stenosis. Near occlusion - 95-99% stenosis. Occluded - 100% stenosis. IMPRESSION: No acute findings in the arteries of the neck. Communications: Call Doctor Stroke Electronically signed by: Oumra Vila MD 07/01/24 22:58 PM Medications Administered Home Medications lisinopril 10 mg tablet 10 mg PO QAM 02/05/22 [History Confirmed 07/01/24] pioglitazone 30 mg tablet (Actos) 30 mg PO QAM 02/05/22 [History Confirmed 07/01/24] citalopram 10 mg tablet 10 mg PO 1XD 07/01/24 [History Confirmed 07/01/24] rosuvastatin 5 mg tablet 5 mg PO 3XWK 07/01/24 [History Confirmed 07/01/24] Active Medications Aspirin (No Aspirin Within 24hrs Of Thrombolytic-Stroke) 1 each PO UD YEIMY Stop: 07/02/24 23:29 Citalopram Hydrobromide (Citalopram 20 Mg Tab) 10 mg PO DAILY YEIMY Stop: 08/01/24 08:59 Dextrose (Dextrose 50% 50 Ml Syringe) 25 - 50 ml IV UD PRN; Protocol PRN Reason: Hypoglycemia Protocol Stop: 08/01/24 02:24 Glucagon (Glucagon For Inj 1 Mg Vial) 1 mg SQ UD PRN; Protocol PRN Reason: Hypoglycemia Protocol Stop: 08/01/24 02:24 Glucose (Glucose 40% Gel 15 Gm Tube) 15 - 30 gm PO UD PRN; Protocol PRN Reason: Hypoglycemia Protocol Stop: 08/01/24 02:24 Glucose (Glucose 10 Tab/Tube) 4 - 8 tab PO UD PRN; Protocol PRN Reason: Hypoglycemia Protocol Stop: 08/01/24 02:24 Sodium Chloride (Nss) 1,000 mls @ 100 mls/hr IV .Q10H [facility] Stop: 07/02/24 12:24 Last Admin: 07/02/24 02:35 Dose: 100 mls/hr Insulin Aspart (Insulin Aspart Per Unit Charge) 0 units SC Q6 YEIMY Stop: 08/01/24 02:24 Last Admin: 07/02/24 02:34 Dose: Not Given Labetalol HCl (Labetalol Hcl Iv 5 Mg/Ml 20ml) 10 mg IV Q4H PRN PRN Reason: Hypertension Stop: 08/01/24 02:24 Miscellaneous (Carbohydrates For Hypoglycemia ) 15 - 30 gm PO UD PRN PRN Reason: Hypoglycemia Protocol Stop: 08/01/24 02:24 Miscellaneous Information (Pharmacist Discharge Med Rec Consult) 1 each N/A UD PRN PRN Reason: Consult Stop: 08/01/24 02:24 Rosuvastatin Calcium (Rosuvastatin Calcium 20 Mg Tab) 20 mg PO QAM [facility] Stop: 08/01/24 08:59 Coding Level of Care Code 33840 IN/OBS CONSULT LVL 2,35M Diagnoses Stroke-like symptoms R29.90 Thrombolytic medication administered within last 5 days Z78.9 Sleep apnea G47.30
[2024-07-02] MEDS ORDERED: hydrALAZINE HCL 20 MG/ML VIAL IM PRN (03:15)
[2024-07-02 04:48] LABS: Basophils # (auto) 0.06 K/uL (0.00-0.20); Basophils % (auto) 0.7 %; Eosinophils # (auto) 0.35 K/uL (0.00-0.50); Eosinophils % (auto) 4.1 %; Hematocrit (blood only) 38.4 % (42.0-52.0); Hemoglobin 12.8 g/dl (14.0-18.0); Immature Granulocytes # (auto) 0.04 K/uL (0.01-0.20); Immature Granulocytes % (auto) 0.5 %; Lymphocytes % (auto) 20.9 %; Mean Corpuscular Hemoglobin 29.3 pg (25.0-34.0); Mean Corpuscular Hgb Conc 33.3 g/dL (32.0-36.0); Mean Corpuscular Volume 87.9 fL (80.0-100.0); Mean Platelet Volume 9.7 fL (9.4-12.4); Monocytes # (auto) 0.65 K/uL (0.11-0.59); Monocytes % (auto) 7.5 %; Neutrophils # (auto) 5.73 K/uL (1.40-6.50); Neutrophils % (auto) 66.3 %; Platelet Count 212 K/uL (130-400); RDW Coefficient of Variation 14.1 % (11.5-14.5); Red Blood Count 4.37 M/uL (4.70-6.10); White Blood Count 8.63 K/ul (4.8-10.8)
[2024-07-02 05:04] LABS: Calcium 8.5 mg/dl (8.6-10.3); Chol HDL Ratio 3.4 (0-5); Creatinine Clr Calc Pharmacy 139.8 ml/min; Potassium 4.1 mmol/L (3.5-5.1)
--- NOTE | 2024-07-02 05:49 | History & Physical Report ---
Date of Service July 02, 2024 Assessment & Plan (1) Right sided numbness: Plan: 64-year-old male with past medical history significant for type 2 diabetes, hyperlipidemia, sleep apnea, idiopathic chronic gout, morbid obesity, presents with right-sided numbness and status post TNK in the ER.. Around 9:30 PM patient noticed some numbness in the right hip region then the numbness extended into right upper extremity and right lower extremity. He was watching his phone when this episode happened. Seems he was unable to walk because of his symptoms. In the ER stroke alert was called. Initial CT scans were unremarkable. As patient was still having some paresthesias stroke neurology decided to give TNK. Patient currently status post TNK. Patient states numbness is much better now. Denies any headache. Vision is okay. No runny nose or sore throat. No cough. No fevers. No difficulty swallowing. No chest pain or shortness of breath. No nausea. No abdominal pain. Normal bowel and bladder movements. Currently resting comfortably and hemodynamically stable. Right-sided numbness Strokelike symptoms CTA head and neck unremarkable CT head unremarkable [place] stroke neurology recommended TNK as patient was within the window and also still having some paresthesias Status post TNK Numbness much improved as per patient Closely monitor in ICU post TNK Post TNK protocol Not to give aspirin [address] head 24 hours post TNK Will follow MRI Will follow lipid profile and HbA1c levels Neurology consult in a.m. PT OT when stable Possible sleep apnea CPAP nightly Hypertension Holding lisinopril for permissive hypertension IV labetalol as needed Diabetes Hold home p.o. medications Insulin sliding scale Will monitor Hyperlipidemia On rosuvastatin 5 mg p.o. 3 times weekly Will change to low rosuvastatin 20 mg daily Will follow fasting lipid profile Morbid obesity Counseling Nutrition follow-up DVT prophylaxis SCDs Disposition ICU Full code. Admission and Anticipated Discharge Date Admission Date: July 02, 2024 History of Present Illness Chief Complaint: Right-sided numbness Primary Care Provider: Fidencio Thrasher MD 64-year-old male with past medical history significant for type 2 diabetes, hyperlipidemia, sleep apnea, idiopathic chronic gout, morbid obesity, presents with right-sided numbness and status post TNK in the ER.. Around 9:30 PM patient noticed some numbness in the right hip region then the numbness extended into right upper extremity and right lower extremity. He was watching his phone when this episode happened. Seems he was unable to walk because of his symptoms. In the ER stroke alert was called. Initial CT scans were unremarkable. As patient was still having some paresthesias stroke neurology decided to give TNK. Patient currently status post TNK. Patient states numbness is much better now. Denies any headache. Vision is okay. No runny nose or sore throat. No cough. No fevers. No difficulty swallowing. No chest pain or shortness of breath. No nausea. No abdominal pain. Normal bowel and bladder movements. Currently resting comfortably and hemodynamically stable. Past medical history. As mentioned above. Past surgical history. Colonoscopy with biopsy. Laparoscopic cholecystectomy. Social history. . Quit smoking 1984. Smoked 2 packs a day for 2 years. Alcohol currently rarely. No drug use. Family history. Mother had arthritis. Diabetes. Heart disorder. Brother has diabetes. Allergies Allergy/AdvReac Type Severity Reaction Status Date / Time No Known Allergies Allergy Verified 02/10/22 08:16 Home Medications Medication Instructions Recorded Confirmed Type lisinopril 10 mg tablet 10 mg PO QAM 02/05/22 07/01/24 History pioglitazone 30 mg tablet (Actos) 30 mg PO QAM 02/05/22 07/01/24 History citalopram 10 mg tablet 10 mg PO 1XD 07/01/24 07/01/24 History rosuvastatin 5 mg tablet 5 mg PO 3XWK 07/01/24 07/01/24 History Past Med/Surg History Problem List (Updated 07/02/24 @ 03:11 by DHARMESH Tidwell) Sleep apnea CPAP Right sided numbness (Acute) Hypertension (Acute) Thrombolytic medication administered within last 5 days (Acute) Stroke-like symptoms (Acute) History of colon polyps Encounter for pre-operative examination Medical History History of anesthesia reaction WITH PRIOR COLONOSCOPY > 5 YR AGO, [facility] - PT WAS TOLD HE GAVE ANESTHESIA FITS RELATING TO SLEEP APNEA/ NO KNOWN FURTHER DETAILS. PT REPORTS HE IS SLOWER TO WAKE UP. History of colon polyps ORIGINAL AROUND AGE 49 , HAD POLYPS/ BENIGN F/U COLONOSCOPY NO POLYPS Sleep apnea CPAP Borderline high blood pressure Diabetes Surgical History History of cholecystectomy History of colonoscopy Family History Brother Family history of diabetes mellitus Mother Family history of diabetes mellitus Grandmother Family history of diabetes mellitus Grandfather Family history of diabetes mellitus Social History Smoking Status: Never smoker Tobacco Type: Smokeless Tobacco (Dip or Chew) Second Hand Exposure: No; Do You Dip or Chew Tobacco: Yes; Tobacco Cessation Education Requested by Patient: No Hx Alcohol Use: Yes Alcohol type: hard liquor Hx Substance Use: No Preferred Language: Grenadian Communication Ability: Effective Wound Care Nurse Required: No Beliefs That Will Affect Care: None Current Living Situation: Spouse Current Living Situation Comment: lives w/ Other Information That Helps Us Care for You: No Feels Safe at Home: Yes Safety Concerns: Feels Safe At This Time Assistive Devices: CPAP Review of Systems Review of Systems: All systems reviewed & are unremarkable except as noted in HPI & below Physical Exam Physical Exam: General- Not in distress Head- atraumatic Eyes- PERRL, EOMI. ENT- oropharynx clear Neck- supple, no JVD Lungs- clear to auscultation no wheezing or crackles Heart- regular rate and rhythm; no murmur, no gallop. Abdomen- normal bowel sounds, soft, nontender, no distension Extremities- no pretibial edema, no erythema seen Neuro- alert, oriented ; PERRL, EOMI; no facial palsy; no dysarthria; motor 5/5 bilaterally; no pronator drift,coordination of movements normal, sensations minimal diminished on right lower extremity. Results & Data Results & Data Vital Signs (Past 12 Hours) Vital Signs Temp Pulse Pulse Pulse Resp BP BP 07/02/24 05:32 36.5 C 55 L 19 127/51 L 07/02/24 05:02 37 C 54 L 18 126/47 L 07/02/24 04:32 36.9 C 55 L 18 133/70 07/02/24 04:02 36.5 C 55 L 20 136/64 07/02/24 03:32 36.5 C 58 L 16 114/69 07/02/24 03:06 62 16 07/02/24 03:02 37 C 58 L 17 132/67 07/02/24 02:30 58 L 07/02/24 02:29 36.9 C 56 L 18 07/02/24 02:00 62 18 07/02/24 01:30 64 18 07/02/24 01:15 60 18 07/02/24 01:00 61 18 07/02/24 00:45 62 18 07/02/24 00:30 62 20 07/02/24 00:15 58 L 20 07/02/24 00:00 60 20 07/01/24 23:45 58 L 18 07/01/24 23:30 65 20 167/80 H 07/01/24 23:20 60 18 155/91 H 07/01/24 23:03 07/01/24 22:54 69 07/01/24 22:46 37.1 C 69 20 153/115 H BP Pulse Ox O2 Del Method 07/02/24 05:32 95 BiPAP 07/02/24 05:02 94 BiPAP 07/02/24 04:32 95 BiPAP 07/02/24 04:02 94 BiPAP 07/02/24 03:32 97 CPAP 07/02/24 03:06 95 07/02/24 03:02 95 Room Air 07/02/24 02:30 07/02/24 02:29 130/64 95 Room Air 07/02/24 02:00 136/71 96 Room Air 07/02/24 01:30 145/68 H 97 Room Air 07/02/24 01:15 156/91 H 97 Room Air 07/02/24 01:00 177/81 H 97 Room Air 07/02/24 00:45 158/76 H 97 Room Air 07/02/24 00:30 160/72 H 96 Room Air 07/02/24 00:15 162/76 H 97 Room Air 07/02/24 00:00 150/74 H 97 Room Air 07/01/24 23:45 146/74 H 96 Room Air 07/01/24 23:30 96 07/01/24 23:20 98 07/01/24 23:03 93 Room Air 07/01/24 22:54 07/01/24 22:46 98 Room Air Diagnostic Findings Laboratory Results WBC 8.63 K/ul (4.8-10.8) 07/02/24 04:04 RBC 4.37 M/uL (4.70-6.10) L 07/02/24 04:04 Hgb 12.8 g/dl (14.0-18.0) L 07/02/24 04:04 Hct 38.4 % (42.0-52.0) L 07/02/24 04:04 MCV 87.9 fL (80.0-100.0) 07/02/24 04:04 MCH 29.3 pg (25.0-34.0) 07/02/24 04:04 MCHC 33.3 g/dL (32.0-36.0) 07/02/24 04:04 RDW Std Deviation 45.0 fL (36.4-46.3) 07/02/24 04:04 RDW Coeff of Michael 14.1 % (11.5-14.5) 07/02/24 04:04 Plt Count 212 K/uL (130-400) 07/02/24 04:04 MPV 9.7 fL (9.4-12.4) 07/02/24 04:04 Immature Gran % (Auto) 0.5 % 07/02/24 04:04 Neut % (Auto) 66.3 % 07/02/24 04:04 Lymph % (Auto) 20.9 % 07/02/24 04:04 [place] % (Auto) 7.5 % 07/02/24 04:04 Eos % (Auto) 4.1 % 07/02/24 04:04 Baso % (Auto) 0.7 % 07/02/24 04:04 Neut # (Auto) 5.73 K/uL (1.40-6.50) 07/02/24 04:04 Lymph # (Auto) 1.80 K/uL (1.20-3.40) 07/02/24 04:04 [place] # (Auto) 0.65 K/uL (0.11-0.59) H 07/02/24 04:04 Eos # (Auto) 0.35 K/uL (0.00-0.50) 07/02/24 04:04 Baso # (Auto) 0.06 K/uL (0.00-0.20) 07/02/24 04:04 Immature Gran # (Auto) 0.04 K/uL (0.01-0.20) 07/02/24 04:04 PT 10.5 Seconds (9.0-12.0) 07/01/24 22:45 INR 1.0 (0.9-1.1) 07/01/24 22:45 APTT 27 Seconds (21-31) 07/01/24 22:45 PTT Ratio 1.0 07/01/24 22:45 Sodium 139 mmol/L (136-145) 07/02/24 04:04 Potassium 4.1 mmol/L (3.5-5.1) 07/02/24 04:04 Chloride 109 mmol/L (98-107) H 07/02/24 04:04 Carbon Dioxide 23 mmol/L (21-32) 07/02/24 04:04 Anion Gap 7 (3-11) 07/02/24 04:04 BUN 18 mg/dl (6-23) 07/02/24 04:04 Creatinine 0.75 mg/dl (0.6-1.4) 07/02/24 04:04 Est Cr Clr Drug Dosing 139.8 ml/min 07/02/24 04:04 eGFR 100.15 07/02/24 04:04 BUN/Creatinine Ratio 24.0 (10-20) H 07/02/24 04:04 Glucose 130 mg/dl (70-99(Fasting)) H 07/02/24 04:04 POC Glucose 123 mg/dl (70-99) H 07/02/24 02:32 Calcium 8.5 mg/dl (8.6-10.3) L 07/02/24 04:04 Ionized Calcium 1.06 mmol/L (1.12-1.32) L 07/02/24 04:04 Magnesium 2.0 mg/dl (1.7-2.4) 07/02/24 04:04 Total Bilirubin 0.5 mg/dl (0.2-1.0) 07/01/24 22:45 AST 17 U/L (13-39) 07/01/24 22:45 ALT 22 U/L (7-52) 07/01/24 22:45 Alkaline Phosphatase 57 U/L (34-104) 07/01/24 22:45 Troponin I High Sens 7.2 pg/ml (0-20) 07/01/24 22:45 Total Protein 6.5 gm/dl (6.0-8.3) 07/01/24 22:45 Albumin 4.1 gm/dl (3.4-5.0) 07/01/24 22:45 Globulin 2.4 gm/dl (2.5-4.0) L 07/01/24 22:45 Albumin/Globulin Ratio 1.7 (0.9-2) 07/01/24 22:45 Triglycerides 92 mg/dl (0-150) 07/02/24 04:04 Cholesterol 141 mg/dl (0-200) 07/02/24 04:04 LDL Cholesterol, Calc 81 mg/dl 07/02/24 04:04 VLDL Cholesterol, Calc 18 mg/dl (0-30) 07/02/24 04:04 HDL Cholesterol 42 mg/dl 07/02/24 04:04 Cholesterol/HDL Ratio 3.4 (0-5) 07/02/24 04:04 Urine Color Yellow 07/02/24 00:53 Urine Appearance Clear (Clear) 07/02/24 00:53 Urine pH 5.5 (4.5-7.5) 07/02/24 00:53 Ur Specific [place] > 1.045 (1.000-1.030) H 07/02/24 00:53 Urine Protein Negative (Negative) 07/02/24 00:53 Urine Glucose (UA) Negative (Negative) 07/02/24 00:53 Urine Ketones Negative (Negative) 07/02/24 00:53 Urine Blood Negative (Negative) 07/02/24 00:53 Urine Nitrite Negative (Negative) 07/02/24 00:53 Urine Bilirubin Negative (Negative) 07/02/24 00:53 Urine Urobilinogen Positive (Negative) H 07/02/24 00:53 Ur Leukocyte Esterase Negative (Negative) 07/02/24 00:53 Nasal Screen MRSA (PCR) Negative (Negative) 07/02/24 02:20 Impressions Chest X-Ray 07/01/24 22:29 EXAM: XR chest 1V portable CLINICAL HISTORY: NEURO DEFICIT ACUTE STROKE SUSPECTED JMF TECHNIQUE: An X-ray image of the chest is obtained in AP projection. COMPARISON: No prior studies are available for comparison. FINDINGS: Pulmonary Parenchyma: Chest leads are seen No evidence of consolidation, collapse, or focal opacities. No pulmonary nodules are identified. Mild blunting of both costophrenic angles seen Heart and Mediastinum: Heart size is mildly enlarged, however this is AP projection. No mediastinal widening or masses. Prominent both faviola likely due to vascular congestion. Aorta appears tortous Bony Thorax: Bony thorax appears intact without fractures or deformities. Soft Tissues: Soft tissues overlying the chest wall are unremarkable. IMPRESSION: No evidence of active pulmonary infection Bilateral hilar vascular congestive changes Mild cardiomegaly however this is AP projection. Mild blunting of both costophrenic angles, likely due to pleural thickening/effusion. Ultrasound correlation is advised Electronically signed by Parminder Gomez 07-02-2024 02:[address] 07/01/24 22:29 CR Exam(s): CT HEAD Without Contrast EXAM: CT Head Without Intravenous Contrast CLINICAL HISTORY: Reason for exam: neuro deficit, acute stroke suspected. TECHNIQUE: Axial computed tomography images of the head/brain without intravenous contrast. CTDI is 15.52 mGy and DLP is 575.07 mGy-cm. Automated exposure control was utilized for the study. A dose lowering technique was utilized adhering to the principles of ALARA. COMPARISON: No relevant prior studies available. FINDINGS: Brain: Mild cerebral atrophy. The brain is otherwise unremarkable. No acute large vessel infarct or intracranial hemorrhage is seen. Ventricles: Unremarkable. No ventriculomegaly. Bones/joints: Unremarkable. No acute fracture. Soft tissues: Unremarkable. Sinuses: Unremarkable as visualized. No acute sinusitis. Mastoid air cells: Unremarkable as visualized. No mastoid effusion. IMPRESSION: Mild cerebral atrophy. The brain is otherwise unremarkable. No acute large vessel infarct or intracranial hemorrhage is seen. Communications: Call Doctor Stroke Electronically signed by: Oumar Vila MD 07/01/24 22:56 PM Head CTA 07/01/24 22:29 CR Exam(s): CTA HEAD With Contrast IV Amt: OPTIRAY 320 120ML EXAM: CT Angiography Head With Intravenous Contrast CLINICAL HISTORY: Reason for exam: neuro deficit, acute stroke suspected. TECHNIQUE: Axial computed tomographic angiography images of the head with intravenous contrast. CTDI is 33.21 mGy and DLP is 16.61 mGy-cm. Automated exposure control was utilized for the study. A dose lowering technique was utilized adhering to the principles of ALARA. MIP reconstructed images were created and reviewed. CONTRAST: Patient received OPTIRAY 320 120ML of IV contrast COMPARISON: No relevant prior studies available. FINDINGS: Right internal carotid artery: Mild calcified plaque in the distal right internal carotid artery causing 20% stenosis. No aneurysm. Right anterior cerebral artery: Unremarkable. No occlusion or significant stenosis. No aneurysm. Right middle cerebral artery: Unremarkable. No occlusion or significant stenosis. No aneurysm. Right posterior cerebral artery: Normally anatomic variant of origin of the right posterior cerebral artery from the anterior circulation. No occlusion or significant stenosis. No aneurysm. Right vertebral artery: The distal right vertebral artery is small with much of the flow terminating into the PICA. This is a normal variant. Left internal carotid artery: No acute findings. Intracranial segment is patent with no significant stenosis. No aneurysm. Left anterior cerebral artery: Unremarkable. No occlusion or significant stenosis. No aneurysm. Left middle cerebral artery: Unremarkable. No occlusion or significant stenosis. No aneurysm. Left posterior cerebral artery: Unremarkable. No occlusion or significant stenosis. No aneurysm. Left vertebral artery: Unremarkable as visualized. Basilar artery: Unremarkable. No occlusion or significant stenosis. No aneurysm. Other vasculature: Mild calcified plaque in the distal left internal: Artery causing 20% stenosis. IMPRESSION: No acute findings in the arteries of the head/brain. Communications: Call Doctor Stroke Electronically signed by: Oumar Vila MD 07/01/24 23:01 PM Neck CTA 07/01/24 22:29 CR Exam(s): CTA NECK With Contrast IV Amt: 120ML OPTIRAY 320 EXAM: CT Angiography Neck With Intravenous Contrast CLINICAL HISTORY: Reason for exam: neuro deficit, acute stroke suspected. TECHNIQUE: Routine carotid CT angiography protocol was performed with intravenous contrast. NASCET criteria using the distal ICAs for comparison were used for evaluation of stenoses. CTDI is 33.21 mGy and DLP is 16.61 mGy-cm. Automated exposure control was utilized for the study. A dose lowering technique was utilized adhering to the principles of ALARA. MIP reconstructed images were created and reviewed. CONTRAST: Patient received 120ML OPTIRAY 320 of IV contrast COMPARISON: None. FINDINGS: VASCULATURE: Right common carotid artery: Unremarkable. No occlusion or significant stenosis. No dissection. Right internal carotid artery: Small amount of calcified plaque in the right proximal internal carotid artery causing 20% stenosis. No dissection. Right external carotid artery: Unremarkable. No occlusion. Right vertebral artery: The right vertebral artery is congenitally small but patent. No occlusion or significant stenosis. No dissection. Left common carotid artery: Unremarkable. No occlusion or significant stenosis. No dissection. Left internal carotid artery: Small amount of calcified plaque in the proximal left internal carotid artery causing less than 20% stenosis. No dissection. Left external carotid artery: Unremarkable. No occlusion. Left vertebral artery: Unremarkable. No occlusion or significant stenosis. No dissection. Aorta: The aortic arch is slightly calcified but nondilated. There is no aneurysm or dissection. NECK: Bones/joints: Mild degenerative changes throughout the cervical spine. There is straightening of the normal cervical curvature. No acute fracture or subluxation is seen. Soft tissues: Unremarkable. Lung apices: Clear. CAROTID STENOSIS REFERENCE USING NASCET CRITERIA: % ICA stenosis = (1 - narrowest ICA diameter/diameter of distal cervical ICA) x 100. Mild - <50% stenosis. Moderate - 50-69% stenosis. Severe - 70-94% stenosis. Near occlusion - 95-99% stenosis. Occluded - 100% stenosis. IMPRESSION: No acute findings in the arteries of the neck. Communications: Call Doctor Stroke Electronically signed by: Oumar Vila MD 07/01/24 22:58 PM ECG Additional Comments: ECG. Normal sinus rhythm at rate of 69. No acute ST changes seen. QTc 462. Code Status & VTE Plan VTE Prophylaxis Plan VTE Prophylaxis will be ordered: Yes
[2024-07-02] MEDS ORDERED: ICU Protocol for HYPERglycemia SCH (07:30)
[2024-07-02 07:39] LABS: Estimated Average Glucose 128 mg/dl; Hemoglobin A1C 6.1 % (4.5-5.6)
[2024-07-02] MEDS: STAT IV/IM STA (07:39)
[2024-07-02] MEDS: CITALOPRAM 20 MG TAB PO SCH (07:41)
[2024-07-02] MEDS: ROSUVASTATIN CALCIUM 20 MG TAB PO SCH (07:42)
--- NOTE | 2024-07-02 11:26 | Neurology Consultation ---
Date of Consultation July 02, 2024 Assessment & Plan (1) Stroke-like symptoms: right sided numbness sp TNK in a 64M with a PMH of HTN, HLD, DM and DAPHNIE. On exam there is mild sensory changes and no weakness. CT and CTA were not yeilding to a cause. I suspect this is small vessel stroke in the left thalamus directly related to his underlying risk factors. 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 After connecting through interactive tele-video, patient was identified by name and date of and/or wristband check.Patient (or authorized healthcare mechanical service representative) was informed that this was a telemedicine visit and it was being conducted confidentially over secure lines. My office door was closed and no one else was present in the room with me.Patient (or authorized healthcare mechanical service representative) provided consent to proceed with the visit, expressed an understanding of privacy and security of the telemedicine visit, and gave permission to have a hospital mechanical service representative in the room in order to assist with the visit and to conduct portions of the visit, as needed. I informed the patient (or authorized healthcare mechanical service representative) that I reviewed their record and presented the opportunity for them to ask any questions regarding the visit today. The patient agreed to participate. History of Present Illness Reason for Consultation: Stroke Like symptoms Attending Physician: Ariadna Talbot MD History of Present Illness Bayron Lama is a 64M with a PMH of HTN, HLD, DM and DAPHNIE who reports that last night at 930pm his whole right side became numb. He was just sitting down on his phone when it happened. He says you could draw a line down the center of him and the entire right side was like novicaine. He also reports some mild weakness with this. He was evalauted in the ED and given TNK. Currently he reports some mild numbness in the right hand but symptoms are significantly improved. He denies any current weakness, headache, vision changes, slurred speech, chest pain and SOB. Allergies Allergy/AdvReac Type Severity Reaction Status Date / Time No Known Allergies Allergy Verified 02/10/22 08:16 Home Medications Medication Instructions Recorded Confirmed Type lisinopril 10 mg tablet 10 mg PO QAM 02/05/22 07/01/24 History pioglitazone 30 mg tablet (Actos) 30 mg PO QAM 02/05/22 07/01/24 History citalopram 10 mg tablet 10 mg PO 1XD 07/01/24 07/01/24 History rosuvastatin 5 mg tablet 5 mg PO 3XWK 07/01/24 07/01/24 History Patient History Medical History History of anesthesia reaction WITH PRIOR COLONOSCOPY > 5 YR AGO, [facility] - PT WAS TOLD HE GAVE ANESTHESIA FITS RELATING TO SLEEP APNEA/ NO KNOWN FURTHER DETAILS. PT REPORTS HE IS SLOWER TO WAKE UP. History of colon polyps ORIGINAL AROUND AGE 49 , HAD POLYPS/ BENIGN F/U COLONOSCOPY NO POLYPS Sleep apnea CPAP Borderline high blood pressure Diabetes Surgical History History of cholecystectomy History of colonoscopy Family History Brother Family history of diabetes mellitus Mother Family history of diabetes mellitus Grandmother Family history of diabetes mellitus Grandfather Family history of diabetes mellitus Social History Smoking Status: Never smoker Tobacco Type: Smokeless Tobacco (Dip or Chew) Second Hand Exposure: No; Do You Dip or Chew Tobacco: Yes; Hx Alcohol Use: Yes Alcohol type: hard liquor Hx Substance Use: No Preferred Language: Syriac Communication Ability: Effective Tooler Required: No Beliefs That Will Affect Care: None Current Living Situation: Spouse Current Living Situation Comment: lives w/ Feels Safe at Home: Yes Assistive Devices: CPAP Physical Exam NEUROLOGIC EXAMINATION: Mental Status:alert, oriented to time, place, person, normal recent memory, normal remote memory, normal attention span, normal concentration, normal language, and normal fund of knowledge Cranial Nerves: CN 2 - no visual defect on confrontation and pupils round, equal, reactive to light CN 3, 4, 6 - extra-ocular movements intact and no nystagmus CN 5 - facial sensation intact CN 7 - no facial asymmetry CN 8 - intact hearing CN 9, 10 - palate symmetric, normal gag CN 11 - good shoulder shrug CN 12 - tongue midline MOTOR: Strength was at least antigravity throughout, Pronator drift was absent, and There were no abnormal movements SENSATION: mildly decreased and tingling in the right hand and lower right leg GAIT: deferred COORDINATION: no ataxia with finger to nose testing and heel to linder testing REFLEXES: cannot assess over telemedicine NIH 1 for sensory loss Results & Data Vital Signs (Past 12 Hours) Vital Signs Temp Pulse Pulse Pulse Resp BP BP 07/02/24 10:30 36.6 C 52 L 20 160/71 H 07/02/24 09:30 36.5 C 56 L 18 137/58 L 07/02/24 08:30 36.5 C 52 L 18 137/70 07/02/24 08:00 07/02/24 07:30 36.5 C 56 L 22 159/72 H 07/02/24 07:00 36.4 C L 58 L 18 139/66 07/02/24 06:32 36.6 C 52 L 21 133/65 07/02/24 06:02 36.9 C 54 L 16 112/46 L 07/02/24 05:32 36.5 C 55 L 19 127/51 L 07/02/24 05:02 37 C 54 L 18 126/47 L 07/02/24 04:32 36.9 C 55 L 18 133/70 07/02/24 04:02 36.5 C 55 L 20 136/64 07/02/24 03:32 36.5 C 58 L 16 114/69 07/02/24 03:06 62 16 07/02/24 03:02 37 C 58 L 17 132/67 07/02/24 02:30 58 L 07/02/24 02:29 36.9 C 56 L 18 07/02/24 02:00 62 18 07/02/24 01:30 64 18 07/02/24 01:15 60 18 07/02/24 01:00 61 18 07/02/24 00:45 62 18 07/02/24 00:30 62 20 07/02/24 00:15 58 L 20 07/02/24 00:00 60 20 07/01/24 23:45 58 L 18 07/01/24 23:30 65 20 167/80 H BP Pulse Ox O2 Del Method 07/02/24 10:30 96 Room Air 07/02/24 09:30 95 Room Air 07/02/24 08:30 94 Room Air 07/02/24 08:00 Room Air 07/02/24 07:30 94 Room Air 07/02/24 07:00 97 Room Air 07/02/24 06:32 93 BiPAP 07/02/24 06:02 94 BiPAP 07/02/24 05:32 95 BiPAP 07/02/24 05:02 94 BiPAP 07/02/24 04:32 95 BiPAP 07/02/24 04:02 94 BiPAP 07/02/24 03:32 97 CPAP 07/02/24 03:06 95 07/02/24 03:02 95 Room Air 07/02/24 02:30 07/02/24 02:29 130/64 95 Room Air 07/02/24 02:00 136/71 96 Room Air 07/02/24 01:30 145/68 H 97 Room Air 07/02/24 01:15 156/91 H 97 Room Air 07/02/24 01:00 177/81 H 97 Room Air 07/02/24 00:45 158/76 H 97 Room Air 07/02/24 00:30 160/72 H 96 Room Air 07/02/24 00:15 162/76 H 97 Room Air 07/02/24 00:00 150/74 H 97 Room Air 07/01/24 23:45 146/74 H 96 Room Air 07/01/24 23:30 96 Laboratory Results Abnormal Lab Results 07/01/24 07/02/24 07/02/24 22:45 00:53 01:06 WBC 9.08 RBC 4.55 L Hgb 13.3 L Hct 40.3 L MCV 88.6 MCH 29.2 MCHC 33.0 RDW Std Deviation 45.8 RDW Coeff of Michael 14.2 Plt Count 208 MPV 9.7 Immature Gran % (Auto) 0.6 Neut % (Auto) 69.2 Lymph % (Auto) 18.2 [place] % (Auto) 7.8 Eos % (Auto) 3.6 Baso % (Auto) 0.6 Neut # (Auto) 6.29 Lymph # (Auto) 1.65 [place] # (Auto) 0.71 H Eos # (Auto) 0.33 Baso # (Auto) 0.05 Immature Gran # (Auto) 0.05 PT 10.5 INR 1.0 APTT 27 PTT Ratio 1.0 Sodium 139 Potassium 4.1 Chloride 105 Carbon Dioxide 28 Anion Gap 6 BUN 21 Creatinine 0.90 Est Cr Clr Drug Dosing 116.5 eGFR 94.78 BUN/Creatinine Ratio 23.3 H Glucose 159 H POC Glucose 126 H Estimat Average Glucose Hemoglobin A1c Calcium 8.4 L Ionized Calcium Magnesium 1.9 Total Bilirubin 0.5 AST 17 ALT 22 Alkaline Phosphatase 57 Troponin I High Sens 7.2 Total Protein 6.5 Albumin 4.1 Globulin 2.4 L Albumin/Globulin Ratio 1.7 Triglycerides Cholesterol LDL Cholesterol, Calc VLDL Cholesterol, Calc HDL Cholesterol Cholesterol/HDL Ratio Urine Color Yellow Urine Appearance Clear Urine pH 5.5 Ur Specific Tyler > 1.045 H Urine Protein Negative Urine Glucose (UA) Negative Urine Ketones Negative Urine Blood Negative Urine Nitrite Negative Urine Bilirubin Negative Urine Urobilinogen Positive H Ur Leukocyte Esterase Negative Nasal Screen MRSA (PCR) 07/02/24 07/02/24 07/02/24 02:20 02:32 04:04 WBC 8.63 RBC 4.37 L Hgb 12.8 L Hct 38.4 L MCV 87.9 MCH 29.3 MCHC 33.3 RDW Std Deviation 45.0 RDW Coeff of Michael 14.1 Plt Count 212 MPV 9.7 Immature Gran % (Auto) 0.5 Neut % (Auto) 66.3 Lymph % (Auto) 20.9 [place] % (Auto) 7.5 Eos % (Auto) 4.1 Baso % (Auto) 0.7 Neut # (Auto) 5.73 Lymph # (Auto) 1.80 [place] # (Auto) 0.65 H Eos # (Auto) 0.35 Baso # (Auto) 0.06 Immature Gran # (Auto) 0.04 PT INR APTT PTT Ratio Sodium 139 Potassium 4.1 Chloride 109 H Carbon Dioxide 23 Anion Gap 7 BUN 18 Creatinine 0.75 Est Cr Clr Drug Dosing 139.8 eGFR 100.15 BUN/Creatinine Ratio 24.0 H Glucose 130 H POC Glucose 123 H Estimat Average Glucose 128 Hemoglobin A1c 6.1 H Calcium 8.5 L Ionized Calcium 1.06 L Magnesium 2.0 Total Bilirubin AST ALT Alkaline Phosphatase Troponin I High Sens Total Protein Albumin Globulin Albumin/Globulin Ratio Triglycerides 92 Cholesterol 141 LDL Cholesterol, Calc 81 VLDL Cholesterol, Calc 18 HDL Cholesterol 42 Cholesterol/HDL Ratio 3.4 Urine Color Urine Appearance Urine pH Ur Specific Tyler Urine Protein Urine Glucose (UA) Urine Ketones Urine Blood Urine Nitrite Urine Bilirubin Urine Urobilinogen Ur Leukocyte Esterase Nasal Screen MRSA (PCR) Negative 07/02/24 07/02/24 06:55 11:29 WBC RBC Hgb Hct MCV MCH MCHC RDW Std Deviation RDW Coeff of Michael Plt Count MPV Immature Gran % (Auto) Neut % (Auto) Lymph % (Auto) [place] % (Auto) Eos % (Auto) Baso % (Auto) Neut # (Auto) Lymph # (Auto) [place] # (Auto) Eos # (Auto) Baso # (Auto) Immature Gran # (Auto) PT INR APTT PTT Ratio Sodium Potassium Chloride Carbon Dioxide Anion Gap BUN Creatinine Est Cr Clr Drug Dosing eGFR BUN/Creatinine Ratio Glucose POC Glucose 143 H 117 H Estimat Average Glucose Hemoglobin A1c Calcium Ionized Calcium Magnesium Total Bilirubin AST ALT Alkaline Phosphatase Troponin I High Sens Total Protein Albumin Globulin Albumin/Globulin Ratio Triglycerides Cholesterol LDL Cholesterol, Calc VLDL Cholesterol, Calc HDL Cholesterol Cholesterol/HDL Ratio Urine Color Urine Appearance Urine pH Ur Specific Tyler Urine Protein Urine Glucose (UA) Urine Ketones Urine Blood Urine Nitrite Urine Bilirubin Urine Urobilinogen Ur Leukocyte Esterase Nasal Screen MRSA (PCR) Diagnostic Findings Chest X-Ray 07/01/24 22:29 EXAM: XR chest 1V portable CLINICAL HISTORY: NEURO DEFICIT ACUTE STROKE SUSPECTED [facility] TECHNIQUE: An X-ray image of the chest is obtained in AP projection. COMPARISON: No prior studies are available for comparison. FINDINGS: Pulmonary Parenchyma: Chest leads are seen No evidence of consolidation, collapse, or focal opacities. No pulmonary nodules are identified. Mild blunting of both costophrenic angles seen Heart and Mediastinum: Heart size is mildly enlarged, however this is AP projection. No mediastinal widening or masses. Prominent both faviola likely due to vascular congestion. Aorta appears tortous Bony Thorax: Bony thorax appears intact without fractures or deformities. Soft Tissues: Soft tissues overlying the chest wall are unremarkable. IMPRESSION: No evidence of active pulmonary infection Bilateral hilar vascular congestive changes Mild cardiomegaly however this is AP projection. Mild blunting of both costophrenic angles, likely due to pleural thickening/effusion. Ultrasound correlation is advised Electronically signed by Parminder Gomez 07-02-2024 02:[address] 07/01/24 22:29 CR Exam(s): CT HEAD Without Contrast EXAM: CT Head Without Intravenous Contrast CLINICAL HISTORY: Reason for exam: neuro deficit, acute stroke suspected. TECHNIQUE: Axial computed tomography images of the head/brain without intravenous contrast. CTDI is 15.52 mGy and DLP is 575.07 mGy-cm. Automated exposure control was utilized for the study. A dose lowering technique was utilized adhering to the principles of ALARA. COMPARISON: No relevant prior studies available. FINDINGS: Brain: Mild cerebral atrophy. The brain is otherwise unremarkable. No acute large vessel infarct or intracranial hemorrhage is seen. Ventricles: Unremarkable. No ventriculomegaly. Bones/joints: Unremarkable. No acute fracture. Soft tissues: Unremarkable. Sinuses: Unremarkable as visualized. No acute sinusitis. Mastoid air cells: Unremarkable as visualized. No mastoid effusion. IMPRESSION: Mild cerebral atrophy. The brain is otherwise unremarkable. No acute large vessel infarct or intracranial hemorrhage is seen. Communications: Call Doctor Stroke Electronically signed by: Oumar Vila MD 07/01/24 22:56 PM Head CTA 07/01/24 22:29 CR Exam(s): CTA HEAD With Contrast IV Amt: OPTIRAY 320 120ML EXAM: CT Angiography Head With Intravenous Contrast CLINICAL HISTORY: Reason for exam: neuro deficit, acute stroke suspected. TECHNIQUE: Axial computed tomographic angiography images of the head with intravenous contrast. CTDI is 33.21 mGy and DLP is 16.61 mGy-cm. Automated exposure control was utilized for the study. A dose lowering technique was utilized adhering to the principles of ALARA. MIP reconstructed images were created and reviewed. CONTRAST: Patient received OPTIRAY 320 120ML of IV contrast COMPARISON: No relevant prior studies available. FINDINGS: Right internal carotid artery: Mild calcified plaque in the distal right internal carotid artery causing 20% stenosis. No aneurysm. Right anterior cerebral artery: Unremarkable. No occlusion or significant stenosis. No aneurysm. Right middle cerebral artery: Unremarkable. No occlusion or significant stenosis. No aneurysm. Right posterior cerebral artery: Normally anatomic variant of origin of the right posterior cerebral artery from the anterior circulation. No occlusion or significant stenosis. No aneurysm. Right vertebral artery: The distal right vertebral artery is small with much of the flow terminating into the PICA. This is a normal variant. Left internal carotid artery: No acute findings. Intracranial segment is patent with no significant stenosis. No aneurysm. Left anterior cerebral artery: Unremarkable. No occlusion or significant stenosis. No aneurysm. Left middle cerebral artery: Unremarkable. No occlusion or significant stenosis. No aneurysm. Left posterior cerebral artery: Unremarkable. No occlusion or significant stenosis. No aneurysm. Left vertebral artery: Unremarkable as visualized. Basilar artery: Unremarkable. No occlusion or significant stenosis. No aneurysm. Other vasculature: Mild calcified plaque in the distal left internal: Artery causing 20% stenosis. IMPRESSION: No acute findings in the arteries of the head/brain. Communications: Call Doctor Stroke Electronically signed by: Oumar Vila MD 07/01/24 23:01 PM Neck CTA 07/01/24 22:29 CR Exam(s): CTA NECK With Contrast IV Amt: 120ML OPTIRAY 320 EXAM: CT Angiography Neck With Intravenous Contrast CLINICAL HISTORY: Reason for exam: neuro deficit, acute stroke suspected. TECHNIQUE: Routine carotid CT angiography protocol was performed with intravenous contrast. NASCET criteria using the distal ICAs for comparison were used for evaluation of stenoses. CTDI is 33.21 mGy and DLP is 16.61 mGy-cm. Automated exposure control was utilized for the study. A dose lowering technique was utilized adhering to the principles of ALARA. MIP reconstructed images were created and reviewed. CONTRAST: Patient received 120ML OPTIRAY 320 of IV contrast COMPARISON: None. FINDINGS: VASCULATURE: Right common carotid artery: Unremarkable. No occlusion or significant stenosis. No dissection. Right internal carotid artery: Small amount of calcified plaque in the right proximal internal carotid artery causing 20% stenosis. No dissection. Right external carotid artery: Unremarkable. No occlusion. Right vertebral artery: The right vertebral artery is congenitally small but patent. No occlusion or significant stenosis. No dissection. Left common carotid artery: Unremarkable. No occlusion or significant stenosis. No dissection. Left internal carotid artery: Small amount of calcified plaque in the proximal left internal carotid artery causing less than 20% stenosis. No dissection. Left external carotid artery: Unremarkable. No occlusion. Left vertebral artery: Unremarkable. No occlusion or significant stenosis. No dissection. Aorta: The aortic arch is slightly calcified but nondilated. There is no aneurysm or dissection. NECK: Bones/joints: Mild degenerative changes throughout the cervical spine. There is straightening of the normal cervical curvature. No acute fracture or subluxation is seen. Soft tissues: Unremarkable. Lung apices: Clear. CAROTID STENOSIS REFERENCE USING NASCET CRITERIA: % ICA stenosis = (1 - narrowest ICA diameter/diameter of distal cervical ICA) x 100. Mild - <50% stenosis. Moderate - 50-69% stenosis. Severe - 70-94% stenosis. Near occlusion - 95-99% stenosis. Occluded - 100% stenosis. IMPRESSION: No acute findings in the arteries of the neck. Communications: Call Doctor Stroke Electronically signed by: Oumar Vila MD 07/01/24 22:58 PM
--- NOTE | 2024-07-02 11:29 | Electrocardiogram Report ---
Test Reason : Blood Pressure : */* mmHG Vent. Rate : 69 BPM Atrial Rate : 69 BPM P-R Int : 178 ms QRS Dur : 80 ms QT Int : 432 ms P-R-T Axes : 49 75 50 degrees QTcB Int : 462 ms Normal sinus rhythm Normal ECG No previous ECGs available Confirmed by Michael Rebolledo ([id number]) on 07/02/2024 11:28:28 AM Referred By: REFERRED SELF Confirmed By: Michael Rebolledo
--- NOTE | 2024-07-02 13:46 | Communication Note ---
Date of Service: July 02, 2024 evaluated patient at bedside this am, admitted early in am Reports right hand feels like its asleep still, but the majority of his sensory deficit on presentation has resolved Patient received TNK 07/01---denies any headache, chest pain, sob or other symptoms at this time EXAM CNII-XII intact, strength intact BUE/BLE, no dysarthria noted, RRR, CTAB #Stroke like symptoms pending MRI CT/CTA unremarkable reviewed Neurology recommendations: suspect possible thalamic stroke ICU for post TNK management -CT this evening around 2330 A1C 6.1% LDL 81 on rosuvastatin 5mg x 3wk at home; increased to high intensity ASVCD 29.7% ECHO reviewed: stable
[2024-07-02] MEDS: GADOBUTROL 65ML VIAL IV ONE (13:52)
--- NOTE | 2024-07-02 14:33 | Magnetic Resonance Report ---
MR brain wo/w con CLINICAL HISTORY: cva TECHNIQUE: Multiplanar and multisequence MR images of the brain were obtained prior to and following administration of gadolinium contrast. Comparison: Comparison is made to CTA head and neck 07/01/2024 FINDINGS: Focus of restricted diffusion in the left posterior thalamus. The white matter is unremarkable. The v entricular system is normal in appearance. No mass or abnormal enhancement is seen. There is no mass effect or midline shift. There is no evidence of acute intraparenchymal hemorrhage. No extra axial fl uid collections are seen. The corpus callosum, pituitary gland, and cerebellar tonsils appear grossly unremarkable. Flow voids of the major intracranial arterial vessels are identified. The imaged portions of the para nasal sinuses, mastoid air cells, and orbits are unremarkable. Calcification is noted in the alivia. IMPRESSION: There is a focus of restricted diffusion in the left thalamus compatible with acute infarct. No evide nce of hemorrhagic transformation. ACT 112: Negative or not required by law. Electronically signed by: Isaías Orozco M.D. 07/02/2024 2:31 PM
--- NOTE | 2024-07-03 01:34 | CT Scan Report ---
EXAM: CT head/brain wo con CLINICAL HISTORY: Post TPA/TNK 24 hour TECHNIQUE: Axial non-contrast CT scan of the brain was performed from the skull base to the high parietal region with multiple reformats. One of the following dose reduction techniques were utilized for this exam: Automated exposure control, adjustment of the mA and/or kV according to patient size, use of iterative reconstruction. COMPARISON: 07/01/2024 FINDINGS: Brain Parenchyma: A tiny hypodense area noted in the posterior limb of the left internal capsule likely suggesting a lacunar infarct. Age-appropriate involutional brain changes with widened extra-axial CSF spaces and prominence of the ventricular system. Normal attenuation of the rest of cerebral hemispheres, cerebellum, and brainstem. No evidence of acute territorial infarct, hemorrhage, or mass effect. No abnormal areas of hyperattenuation. Subarachnoid Spaces: No evidence of subarachnoid hemorrhage or extra-axial fluid collections. Cerebellum and Brainstem: Normal size and signal. No masses, lesions, or areas of abnormal signal. Orbits: Normal appearance of the globes, optic nerves, and extraocular muscles. No evidence of orbital masses or abnormal signal. Sinuses: Minimal inflammatory change seen in the posterior ethmoid sinus. Deviated nasal septum seen convex to the right side. Hypertrophied left inferior nasal turbinate. Mastoid Air Cells: Clear mastoid air cells. No evidence of mastoiditis. Skull: Normal skull morphology. A few tiny lipomas are noted along fthe john. IMPRESSION: 1. Interval development of a tiny hypodense area in posterior limb of the left internal capsule suggesting a lacunar infarct. MRI brain with DWI sequence is recommended for further evaluation. 2. Age-appropriate brain atrophy.Stable Electronically signed by Parminder Gomez 07-03-2024 01:34 AM
[2024-07-03 05:06] LABS: Basophils # (auto) 0.06 K/uL (0.00-0.20); Basophils % (auto) 0.6 %; Eosinophils # (auto) 0.53 K/uL (0.00-0.50); Eosinophils % (auto) 5.5 %; Hematocrit (blood only) 38.8 % (42.0-52.0); Hemoglobin 12.8 g/dl (14.0-18.0); Immature Granulocytes # (auto) 0.05 K/uL (0.01-0.20); Immature Granulocytes % (auto) 0.5 %; Lymphocytes # (auto) 1.73 K/uL (1.20-3.40); Mean Corpuscular Hemoglobin 28.8 pg (25.0-34.0); Mean Corpuscular Volume 87.4 fL (80.0-100.0); Mean Platelet Volume 9.5 fL (9.4-12.4); Monocytes # (auto) 0.71 K/uL (0.11-0.59); Monocytes % (auto) 7.4 %; Neutrophils # (auto) 6.53 K/uL (1.40-6.50); Platelet Count 200 K/uL (130-400); Red Blood Count 4.44 M/uL (4.70-6.10); White Blood Count 9.61 K/ul (4.8-10.8)
[2024-07-03 05:17] LABS: BUN Creatinine Ratio 21.3 (10-20); Calcium 8.6 mg/dl (8.6-10.3); Creatinine Clr Calc Pharmacy 139.9 ml/min; Potassium 4.2 mmol/L (3.5-5.1)
[2024-07-03] MEDS: lisinopril 10 MG TAB PO SCH (07:51)
[2024-07-03] MEDS: ASPIRIN 81 MG ECTAB PO SCH (07:51)
--- NOTE | 2024-07-03 08:40 | Critical Care Progress Note ---
Date of Service July 03, 2024 Assessment & Plan (1) Stroke-like symptoms: (2) Thrombolytic medication administered within last 5 days: (3) Sleep apnea: Plan Reason Critically Ill: 64 YOM Neuro CVA left thalamus - Reviewed neurology progress note - ASA following 24 hours thrombolytics should be initiated - PT/OT eval Anxiety: Celexa 10 mg daily Cardiac - no acute needs Hypertension: Likely needs optimization -10 mg lisinopril Palpitations: May benefit from Holter monitor Respiratory - DAPHNIE utilizes CPAP with sleep and naps - no acute needs GI - No acute needs - deit as tolerated RENAL/LYTES - NO acute needs - No acute needs ENDO - DMII - HGBa1C: 6.1 -Optimize risk factors HEME - No acute needs ID - NO concern at this time for infectious process LINES/IV ACCESS - Continue use of these lines DVT PROPHYLAXIS - SCDS, DISPO: ICU 24 hours post thrombolytics Stable for downgrade out of ICU Admission and Anticipated Discharge Date Admission Date: July 02, 2024 Subjective Patient reports he does have occasional palpitations. He states they are more common when he reacts to the stresses of having a son with mental health and addiction issues. Denies any current palpitations or shortness of breath. Reports he feels that he is returned back to baseline, desires to get up started walking around. Physical Exam Physical Exam: General: Alert. nontoxic. Skin: Warm, dry, Head: Atraumatic Ears, nose, mouth and throat: airway patent Cardiovascular: Normal peripheral perfusion Respiratory: no respiratory distress Gastrointestinal: Non distended Musculoskeletal: No deformity Results & Data Results & Data Vital Signs (Past 12 Hours) Vital Signs Temp Pulse Pulse Resp BP BP Pulse Ox 07/03/24 08:22 55 L 07/03/24 06:00 51 L 19 157/77 H 90 07/03/24 05:00 37 C 55 L 20 150/89 H 96 07/03/24 04:00 52 L 20 157/82 H 93 07/03/24 03:27 54 L 16 98 07/03/24 03:00 50 L 17 159/87 H 94 07/03/24 02:00 50 L 18 175/68 H 95 07/03/24 01:37 58 L 18 96 07/03/24 01:00 54 L 20 147/75 H 94 07/03/24 00:00 52 L 07/02/24 23:54 51 L 19 164/84 H 93 07/02/24 23:31 37 C 50 L 20 165/74 H 95 07/02/24 23:08 179/83 H 07/02/24 22:32 36.9 C 58 L 15 161/88 H 97 07/02/24 22:00 159/78 H 07/02/24 21:40 169/87 H 07/02/24 21:32 37 C 52 L 21 188/91 H 95 O2 Del Method 07/03/24 08:22 07/03/24 06:00 Room Air 07/03/24 05:00 BiPAP 07/03/24 04:00 BiPAP 07/03/24 03:27 07/03/24 03:00 BiPAP 07/03/24 02:00 BiPAP 07/03/24 01:37 07/03/24 01:00 Room Air 07/03/24 00:00 07/02/24 23:54 07/02/24 23:31 Room Air 07/02/24 23:08 07/02/24 22:32 Room Air 07/02/24 22:00 07/02/24 21:40 07/02/24 21:32 Room Air Critical Care Results & Data Vital Signs (Past 12 Hours) Vital Signs Temp Pulse Pulse Resp BP BP Pulse Ox 07/03/24 08:22 55 L 07/03/24 06:00 51 L 19 157/77 H 90 07/03/24 05:00 37 C 55 L 20 150/89 H 96 07/03/24 04:00 52 L 20 157/82 H 93 07/03/24 03:27 54 L 16 98 07/03/24 03:00 50 L 17 159/87 H 94 07/03/24 02:00 50 L 18 175/68 H 95 07/03/24 01:37 58 L 18 96 07/03/24 01:00 54 L 20 147/75 H 94 07/03/24 00:00 52 L 07/02/24 23:54 51 L 19 164/84 H 93 07/02/24 23:31 37 C 50 L 20 165/74 H 95 07/02/24 23:08 179/83 H 07/02/24 22:32 36.9 C 58 L 15 161/88 H 97 07/02/24 22:00 159/78 H 07/02/24 21:40 169/87 H 07/02/24 21:32 37 C 52 L 21 188/91 H 95 O2 Del Method 07/03/24 08:22 07/03/24 06:00 Room Air 07/03/24 05:00 BiPAP 07/03/24 04:00 BiPAP 07/03/24 03:27 07/03/24 03:00 BiPAP 07/03/24 02:00 BiPAP 07/03/24 01:37 07/03/24 01:00 Room Air 07/03/24 00:00 07/02/24 23:54 07/02/24 23:31 Room Air 07/02/24 23:08 07/02/24 22:32 Room Air 07/02/24 22:00 07/02/24 21:40 07/02/24 21:32 Room Air Lab & Micro Results (Past 24 Hours) RBC 4.44 M/uL (4.70-6.10) L 07/03/24 WBC 9.61 K/ul (4.8-10.8) 07/03/24 Hgb 12.8 g/dl (14.0-18.0) L 07/03/24 Hct 38.8 % (42.0-52.0) L 07/03/24 MCV 87.4 fL (80.0-100.0) 07/03/24 MCH 28.8 pg (25.0-34.0) 07/03/24 MCHC 33.0 g/dL (32.0-36.0) 07/03/24 RDW Standard Deviation 45.0 fL (36.4-46.3) 07/03/24 RDW Coefficient of Variation 14.0 % (11.5-14.5) 07/03/24 Plt Count 200 K/uL (130-400) 07/03/24 MPV 9.5 fL (9.4-12.4) 07/03/24 Neutrophils (%) (Auto) 68.0 % 07/03/24 Lymphocytes (%) (Auto) 18.0 % 07/03/24 Monocytes # (Auto) 0.71 K/uL (0.11-0.59) H 07/03/24 Eosinophils # (Auto) 0.53 K/uL (0.00-0.50) H 07/03/24 Immature Granulocyte % (Auto) 0.5 % 07/03/24 Neutrophils # (Auto) 6.53 K/uL (1.40-6.50) H 07/03/24 Lymphocytes # (Auto) 1.73 K/uL (1.20-3.40) 07/03/24 Monocytes # (Auto) 0.71 K/uL (0.11-0.59) H 07/03/24 Eosinophils # (Auto) 0.53 K/uL (0.00-0.50) H 07/03/24 Basophils # (Auto) 0.06 K/uL (0.00-0.20) 07/03/24 Immature Granulocyte # (Auto) 0.05 K/uL (0.01-0.20) 4 Na 137 mmol/L (136-145) 07/03/24 K 4.2 mmol/L (3.5-5.1) 07/03/24 Cl 107 mmol/L (98-107) 07/03/24 CO2 23 mmol/L (21-32) 07/03/24 Anion Gap 7 (3-11) 07/03/24 BUN 16 mg/dl (6-23) 07/03/24 Creatinine 0.75 mg/dl (0.6-1.4) 07/03/24 BUN/Creatinine Ratio 21.3 (10-20) H 07/03/24 Glu 135 mg/dl (70-99(Fasting)) H 07/03/24 Ca 8.6 mg/dl (8.6-10.3) 07/03/24 Mg 2.0 mg/dl (1.7-2.4) 07/03/24 04:40 Calcium Level 8.6 mg/dl (8.6-10.3) 07/03/24 04:40 Diagnostic Findings (Past 24 Hours) Brain MRI 07/02/24 02:25 MR brain wo/w con CLINICAL HISTORY: cva TECHNIQUE: Multiplanar and multisequence MR images of the brain were obtained prior to and following administration of gadolinium contrast. Comparison: Comparison is made to CTA head and neck 07/01/2024 FINDINGS: Focus of restricted diffusion in the left posterior thalamus. The white matter is unremarkable. The ventricular system is normal in appearance. No mass or abnormal enhancement is seen. There is no mass effect or midline shift. There is no evidence of acute intraparenchymal hemorrhage. No extra axial fluid collections are seen. The corpus callosum, pituitary gland, and cerebellar tonsils appear grossly unremarkable. Flow voids of the major intracranial arterial vessels are identified. The imaged portions of the paranasal sinuses, mastoid air cells, and orbits are unremarkable. Calcification is noted in the alivia. IMPRESSION: There is a focus of restricted diffusion in the left thalamus compatible with acute infarct. No evidence of hemorrhagic transformation. ACT 112: Negative or not required by law. Electronically signed by: Isaías Orozco M.D. 07/02/2024 2:[address] 07/03/24 00:50 EXAM: CT head/brain wo con CLINICAL HISTORY: Post TPA/TNK 24 hour TECHNIQUE: Axial non-contrast CT scan of the brain was performed from the skull base to the high parietal region with multiple reformats. One of the following dose reduction techniques were utilized for this exam: Automated exposure control, adjustment of the mA and/or kV according to patient size, use of iterative reconstruction. COMPARISON: 07/01/2024 FINDINGS: Brain Parenchyma: A tiny hypodense area noted in the posterior limb of the left internal capsule likely suggesting a lacunar infarct. Age-appropriate involutional brain changes with widened extra-axial CSF spaces and prominence of the ventricular system. Normal attenuation of the rest of cerebral hemispheres, cerebellum, and brainstem. No evidence of acute territorial infarct, hemorrhage, or mass effect. No abnormal areas of hyperattenuation. Subarachnoid Spaces: No evidence of subarachnoid hemorrhage or extra-axial fluid collections. Cerebellum and Brainstem: Normal size and signal. No masses, lesions, or areas of abnormal signal. Orbits: Normal appearance of the globes, optic nerves, and extraocular muscles. No evidence of orbital masses or abnormal signal. Sinuses: Minimal inflammatory change seen in the posterior ethmoid sinus. Deviated nasal septum seen convex to the right side. Hypertrophied left inferior nasal turbinate. Mastoid Air Cells: Clear mastoid air cells. No evidence of mastoiditis. Skull: Normal skull morphology. A few tiny lipomas are noted along fthe john. IMPRESSION: 1. Interval development of a tiny hypodense area in posterior limb of the left internal capsule suggesting a lacunar infarct. MRI brain with DWI sequence is recommended for further evaluation. 2. Age-appropriate brain atrophy.Stable Electronically signed by Parminder Gomez 07-03-2024 01:34 AM I & O Totals 24 Hours 07/02/24 07/03/24 07/04/24 06:59 06:59 06:59 Intake Total 500 / 500 0 / 0 240 / 240 Output Total 0 / 475 2025 Balance 500 / 25 239 / 239 Cumulative 07/01/24 22:22 thru 07/03/24 08:00 Intake Total 2790 Output Total 2026 Balance 763 RT Ventilator Mngmt (Last Documented) Ventilator Ordered Settings Respiratory Rate 19 07/03/24 06:00 Ventilator - PT Measurements Respiratory Rate 19 Coding Level of Care Code 05832 SUB INP/OBS CARE 08/04MIN Diagnoses Stroke-like symptoms R29.90 Thrombolytic medication administered within last 5 days Z78.9 Sleep apnea G47.30
[2024-07-03 09:05] VITALS: RESP 18; TEMP 98.4
[2024-07-03] MEDS: lisinopril 5 MG TAB PO ONE (11:31)
[2024-07-03] MEDS: CLOPIDOGREL BISULFATE 75 MG TAB PO ONE (11:31)
[2024-07-03] MEDS: hydroCHLOROthiazide 25 MG TAB PO STA (11:32)
[2024-07-03 11:50] VITALS: BP 180/97; O2SAT 93
--- NOTE | 2024-07-03 11:51 | Pharmacy Report ---
- Date of Service July 03, 2024 - Pharmacy CVA/TIA Medication Review Medications to Prevent Stroke handout has been added to the patients discharge packet. Antiplatelet(s) * ASA 81 mg Cholesterol * High intensity statin: rosuvastatin 20 mg daily DVT Prophylaxis * SCDs Therapeutic Anticoagulation * No history of Afib/Aflutter noted Type 2 Diabetes * Patient does not have T2DM
[2024-07-03] MEDS: STROKE PATIENT DISCHARGE STA (11:53)
--- NOTE | 2024-07-03 12:06 | Discharge Summary ---
Discharge Summary Date of Service July 03, 2024 Principal Dx & Hospital Course #1 = Principal Diagnosis (1) Right sided numbness: Mr Lama is a 64-year-old male with past medical history significant for type 2 diabetes, hyperlipidemia, sleep apnea, idiopathic chronic gout, morbid obesity, presents with right-sided numbness and status post TNK in the ER on 07/01 at 2330. Initial imaging did not reveal clear stroke, however, some improvement noted after TNK. MRI obtained following day revealed left thalamic infarct. Patient's course overall uneventful, however, still with sensory/proprioception deficit in right foot and right hand. PT/OT evalauted and recommended outpatient therapy. Patient otherwise eating well, denying any new concerns, and eager for home. Patient started on 21 days of DAPT and high intensity statin. #Left thalamic stroke #Right-sided numbness Strokelike symptoms CTA head and neck unremarkable MRI with acute left thalamic stroke s/p TNK as patient was within the window and also still having some paresthesias 07/01 Numbness much improved as per patient ASA started post TNK Plavix started for 21 days High intensity statin started daily PT/OT: OP pt/ot script given #Possible sleep apnea CPAP nightly encourage op sleep study #Hypertension Resume lisnopril, increased to 20mg dailly for tighter control #Diabetes resume home regimen #Hyperlipidemia continue statin d #Morbid obesity Counseled, patient verbalized understanding Notes For Next Care Provider Medication Changes From Visit Plavix 75 mg for 20 more days ASA 81mg daily Rosuvastatin increased to 20mg daily Lisinopril increased to 20mg daily Admission HPI Per Admitting Provider 64-year-old male with past medical history significant for type 2 diabetes, hyperlipidemia, sleep apnea, idiopathic chronic gout, morbid obesity, presents with right-sided numbness and status post TNK in the ER.. Around 9:30 PM patient noticed some numbness in the right hip region then the numbness extended into right upper extremity and right lower extremity. He was watching his phone when this episode happened. Seems he was unable to walk because of his symptoms. In the ER stroke alert was called. Initial CT scans were unremarkable. As patient was still having some paresthesias stroke neurology decided to give TNK. Patient currently status post TNK. Patient states numbness is much better now. Denies any headache. Vision is okay. No runny nose or sore throat. No cough. No fevers. No difficulty swallowing. No chest pain or shortness of breath. No nausea. No abdominal pain. Normal bowel and bladder movements. Currently resting comfortably and hemodynamically stable. Past medical history. As mentioned above. Past surgical history. Colonoscopy with biopsy. Laparoscopic cholecystectomy. Social history. . Quit smoking 1984. Smoked 2 packs a day for 2 years. Alcohol currently rarely. No drug use. Family history. Mother had arthritis. Diabetes. Heart disorder. Brother has diabetes. Admission Exam Per Admitting Provider General- Not in distress Head- atraumatic Eyes- PERRL, EOMI. ENT- oropharynx clear Neck- supple, no JVD Lungs- clear to auscultation no wheezing or crackles Heart- regular rate and rhythm; no murmur, no gallop. Abdomen- normal bowel sounds, soft, nontender, no distension Extremities- no pretibial edema, no erythema seen Neuro- alert, oriented ; PERRL, EOMI; no facial palsy; no dysarthria; motor 5/5 bilaterally; no pronator drift,coordination of movements normal, sensations minimal diminished on right lower extremity. Discharge Exam Constitutional WD/WN, vitals as above Respiratory normal respiratory effort, lungs clear to auscultation Cardiovascular RRR, no murmur, no edema Neurologic PERRL, EOMI, accommodation nl, no face palsy, no dysarthria RUE/RLE sensory deficit Updated Medication List Medication Instructions Recorded Confirmed Type pioglitazone 30 mg tablet (Actos) 30 mg PO QAM 02/05/22 07/01/24 History citalopram 10 mg tablet 10 mg PO 1XD 07/01/24 07/01/24 History aspirin 81 mg tablet,delayed 81 mg PO QAM 30 days #30 tabs 07/03/24 Rx release clopidogrel 75 mg tablet (Plavix) 75 mg PO DAILY #20 tabs 07/03/24 Rx lisinopril 10 mg tablet 20 mg (2 x 10 mg) PO QAM 30 days 07/03/24 Rx #60 tabs rosuvastatin 20 mg tablet 20 mg PO QAM 30 days #30 tabs 07/03/24 Rx Hospital Stay Data Consultations 07/01/24 23:33 ED Decision to Admit Stat 07/02/24 02:25 Consult 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 Routine 07/02/24 08:00 Consult Neurology Routine Diagnostic Imagining Performed 07/01/24 22:29 CT angio head w con Stat CT angio neck with con Stat CT head/brain wo con Stat 07/02/24 02:25 MR brain wo/w con Routine 07/03/24 00:50 CT head/brain wo con Routine Pending Results Patient Have Any Pending Studies at Discharge: No Discharge Instructions Given to Patient (Per Discharging Provider) You were admitted for right sided weakness and found to have a left thalamic stroke You were given clot buster on 07/01 with resolution of most symptoms, but still with some right hand and right foot sensory changes. This may take some time to recover. You will be given a script to go to outpatient physical therapy to help work on your healing. It is recommended you use a cane You were started on medications to help reduce risk of stroke -Increased rosuvastatin to 20mg daily -Start Aspirin 81 mg daily -Start plavix 75 mg daily for 20 more days (starting tomorrow morning 07/04) -Increased your lisinopril to 20mg daily Total Time Total Time Spent Total Time Spent (In Minutes): 45
[2024-07-03 14:02] VITALS: PULSE 56
[2024-07-04] MEDS ORDERED: lisinopril 20 MG TAB PO SCH (09:00)
--- NOTE | 2024-07-05 10:19 | Pharmacy Report ---
Pharmacist Stroke Counseling - Date of Service July 05, 2024 - Scope: Pharmacy has been consulted to provide medication discharge counseling for this patient admitted with [ischemic stroke] [hemorrhagic stroke] [transient ischemic attack] as per the Pharmacist Discharge Counseling for Stroke Patients [employer]. - Medications on Discharge: Home Medications Medication Instructions Recorded Confirmed pioglitazone 30 mg tablet (Actos) 30 mg PO QAM 02/05/22 07/01/24 citalopram 10 mg tablet 10 mg PO 1XD 07/01/24 07/01/24 New Rx's Medication Instructions Recorded aspirin 81 mg tablet,delayed 81 mg PO QAM 30 days #30 tabs 07/03/24 release clopidogrel 75 mg tablet (Plavix) 75 mg PO DAILY #20 tabs 07/03/24 lisinopril 10 mg tablet 20 mg (2 x 10 mg) PO QAM 30 days 07/03/24 #60 tabs rosuvastatin 20 mg tablet 20 mg PO QAM 30 days #30 tabs 07/03/24 - Action: The above medications, specifically ones for stroke treatment/prophylaxis, have been reviewed in detail with the patient and/or patient pharmaceutical specialty representative(s) prior to discharge. This includes indication, common adverse reactions, drug interactions, and medication administration. Medication counseling has been e mployed using the teach-back method to ensure understanding. - Outcome: The patient and/or patient pharmaceutical specialty representative(s) have demonstrated understanding of the medications. Additional comments: Spoke with the patient about addition of 2 medications: aspirin 81mg daily and plavix 75mg daily. Per discharge instructions patient was to take plavix for a total of 21 days and then continue on asa alone. Patient was planning to tow picker medications from his pharmacy today. I reviewed the medications with Mr. Lama explaining purpose, directions for use, and potential side effects. Patient expressed understanding. Patient was aware of dose changes to other medications that were made at discharge including lisinopril and rosuvastatin. His only question was regarding the frequency of rosuvastatin, I clarified this for him based on his discharge instructions. No further questions or concerns were expressed. Thank you for allowing pharmacy to be involved in the care of this patient. Please call [phone] with any additional questions
== END 2024-07-03 16:09 | disposition home or self-care (01) | DRG 62 ==
LOC: ED 22:31 → 1E 07-02 00:52 → 2E 07-03 08:23

== ENCOUNTER 2025-05-20 01:12 | Observation (INO) ==
[2025-05-20] MEDS: OPTIRAY 320 125ml IV ONE (02:25)
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
[2025-05-20 02:32] LABS: Hematocrit (blood only) 37.7 % (42.0-52.0); Hemoglobin 12.8 g/dl (14.0-18.0); Immature Granulocytes # (auto) 0.05 K/uL (0.01-0.20); Immature Granulocytes % (auto) 0.5 %; Mean Corpuscular Hemoglobin 29.8 pg (25.0-34.0); Mean Corpuscular Volume 87.9 fL (80.0-100.0); Platelet Count 171 K/uL (130-400); RDW Standard Deviation 46.5 fL (36.4-46.3); Red Blood Count 4.29 M/uL (4.70-6.10); White Blood Count 9.34 K/ul (4.8-10.8)
--- NOTE | 2025-05-20 02:48 | CT Scan Report ---
EXAM: CT cervical spine wo con CLINICAL HISTORY: Trauma TECHNIQUE: Computed tomography of the cervical spine was performed without intravenous contrast. Contiguous axial images were obtained from the skull base to T2, with sagittal and coronal reformatted images reconstructed from the axial data. The CT scan was performed according to ALARA (as low as reasonably achievable). COMPARISON: None. FINDINGS: Loss of cervical lordosis suggests the possibility of muscle spasm or positional change. Degenerative changes involving the cervical spine are present in the form of multilevel marginal osteophytes, disc space reduction, and facet arthrosis. The cervical vertebral bodies are normal in height and alignment, with no evidence of fracture or subluxation. The lateral masses of C1 are symmetrical, and the dens is intact. Prevertebral soft tissues are not widened. The remaining suprahyoid and infrahyoid soft tissues in the neck are unremarkable. Posterior uncovertebral arthrosis is noted at the C5-C6 and C6-C7 levels, which indents the ventral thecal sac and causes bilateral neuroforaminal narrowing. The thyroid gland appears unremarkable. IMPRESSION: 1. No acute fracture or subluxation in the cervical spine. 2. Cervical spondylosis. Electronically signed by Adi Joyner 05-20-2025 02:48 AM
[2025-05-20 02:49] LABS: Alanine Aminotransferase 22.0 U/L (7-52); Albumin Globulin Ratio 1.3 (0.9-2); Albumin Level 3.8 gm/dl (3.4-5.0); Alkaline Phosphatase 55.0 U/L (34-104); Anion Gap 8.0 (3-11); Bilirubin,Total 0.6 mg/dl (0.2-1.0); Blood Urea Nitrogen 21.0 mg/dl (6-23); Calcium 8.9 mg/dl (8.6-10.3); Carbon Dioxide 22.0 mmol/L (21-32); Chloride 108.0 mmol/L (98-107); Creatinine Clr Calc Pharmacy 103.8 ml/min; Globulin 3.0 gm/dl (2.5-4.0); Glucose 181.0 mg/dl (70-99(Fasting)); Lipase 18.0 U/L (11-82); Potassium 4.1 mmol/L (3.5-5.1); Sodium 138.0 mmol/L (136-145); Total Protein 6.8 gm/dl (6.0-8.3)
--- NOTE | 2025-05-20 02:55 | CT Scan Report ---
EXAM: CT chest diagnostic w con CLINICAL HISTORY: Trauma TECHNIQUE: Contiguous axial images were obtained from the neck base through the upper abdomen following intravenous administration of contrast material. If IV contrast material had not been administered, the likelihood of detecting abnormalities relevant to the patient's condition would have been substantially decreased. In addition, sagittal and coronal reconstructions were performed. The CT scan was performed according to ALARA (as low as reasonably achievable). COMPARISON: None. FINDINGS: Subtle, ill-defined ground-glass opacities are noted involving the posterior segment of the right upper lobe. The possibility of an infective etiology is suggested; clinical correlation is recommended. A tiny calcified granuloma is noted in the left lower lobe. Few subpleural atelectatic bands are noted in the bilateral lower lobes. No pulmonary nodules are seen. The central airways are patent. There are no pleural effusions. No pneumothorax is seen. No axillary, hilar, or mediastinal adenopathy is identified. The visualized thyroid is unremarkable. The heart, aorta, and pulmonary arteries are of normal size and configuration. No pericardial effusion is identified. Imaged portions of the upper abdomen are unremarkable. No aggressive-appearing osseous lesions are identified. IMPRESSION: Subtle, ill-defined ground-glass opacities are noted involving the posterior segment of the right upper lobe. The possibility of an infective etiology is suggested; clinical correlation is recommended. A tiny calcified granuloma is noted in the left lower lobe. Few subpleural atelectatic bands are noted in the bilateral lower lobes. Electronically signed by Adi Joyner 05-20-2025 02:54 AM
--- NOTE | 2025-05-20 02:58 | CT Scan Report ---
EXAM: CT facial bones wo con CLINICAL HISTORY: Trauma TECHNIQUE: Computed tomography of the orbits and face was performed without intravenous contrast. Contiguous axial images were obtained. Reformatted coronal and sagittal images were also reviewed. CT scan was performed according to ALARA (as low as reasonably achievable). COMPARISON: NONE. FINDINGS: There is a linear displaced fracture of the bilateral nasal bones. There is a linear displaced fracture of the bilateral frontal process of the maxilla. Bilateral ethmoid sinusitis is present. Minimal bilateral maxillary sinusitis is noted. The rest of the paranasal sinuses and mastoid air cells are clear. The globes, optic nerves, extraocular muscles, and retro-orbital fat are grossly unremarkable. Reformatted imaging demonstrates an intact roof and floor of the orbits. The included portions of the mandible are intact. The included intracranial structures and airway are unremarkable. IMPRESSION: Linear displaced fracture of the bilateral nasal bones. Linear displaced fracture of the bilateral frontal process of the maxilla. Bilateral ethmoid sinusitis. Electronically signed by Adi Joyner 05-20-2025 02:57 AM
--- NOTE | 2025-05-20 03:00 | XRay Report ---
EXAM: XR chest 1V portable CLINICAL HISTORY: Trauma TECHNIQUE: An X-ray image of the chest was obtained in the AP projection. 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 FINDINGS: The lungs are clear and well expanded, with no pulmonary infiltrate or pleural effusion. The cardiomediastinal silhouette is within normal limits. There is no acute osseous abnormality. IMPRESSION: No acute cardiopulmonary disease. No new interval abnormality since the prior study. Electronically signed by Adi Joyner 05-20-2025 03:00 AM
--- NOTE | 2025-05-20 03:07 | CT Scan Report ---
EXAM: CT head/brain wo con CLINICAL HISTORY: Trauma TECHNIQUE: Multiple axial images were obtained from the skull base to the vertex without contrast. CT scan was performed according to ALARA (as low as reasonably achievable). COMPARISON: 07/03/2024 FINDINGS: A tiny hypodense area is noted in the posterior limb of the left internal capsule, likely suggesting a lacunar infarct. There is cerebral atrophy. No evidence of space-occupying lesion, hemorrhage, edema, mass effect, midline shift, extra-axial collection, or hydrocephalus is noted. Basal cisterns are symmetric and normal in size and configuration. There are scattered periventricular hypodensities, as can be seen with chronic microvascular ischemic changes. The jernigan-white matter differentiation is preserved. Comminuted and displaced fractures of the bilateral nasal bones with adjacent soft tissue thickening are present. Bilateral anterior ethmoid hemosinus seen. Rest of the visualized paranasal sinuses and mastoid air cells are well aerated. Orbital contents are within normal limits. Rest of the bony structures are intact. IMPRESSION: 1. No evidence of acute intracranial abnormality is demonstrated. 2. Chronic microvascular ischemic changes. 3. Cerebral atrophy. 4. A tiny hypodense area is noted in the posterior limb of the left internal capsule, likely suggesting a lacunar infarct. 5. Acute, comminuted, and displaced fractures of the bilateral nasal bones with adjacent soft tissue thickening. New finding. Electronically signed by Adi Joyner 05-20-2025 03:05 AM
[2025-05-20 03:19] LABS: INR 1.0 (0.9-1.1); Partial Thromboplastin Time 27 Seconds (21-31); Prothrombin Time 10.9 Seconds (9.0-12.0)
--- NOTE | 2025-05-20 03:32 | CT Scan Report ---
EXAM: CT abd pelvis IV con only CLINICAL HISTORY: Trauma TECHNIQUE: Multiple contiguous axial images were obtained from the level of the diaphragm to the pubic symphysis. This study was acquired after the intravenous administration of iodinated contrast material, given the patient's indications for the examination. If intravenous contrast material had not been administered, the likelihood of detecting abnormalities relevant to the patient's condition would have been substantially decreased. Coronal and sagittal reformatted images were generated and reviewed to improve anatomic localization and optimize lesion detection. CT scan was performed according to ALARA (as low as reasonably achievable). COMPARISON: None FINDINGS: The visualized lung bases are clear. ABDOMEN/PELVIS: The liver is normal in size and attenuation. No focal liver lesions are seen. There is no intrahepatic or extrahepatic biliary ductal dilatation. Hepatic vasculature is patent. The gallbladder is surgically removed. The spleen, pancreas, and adrenal glands are unremarkable. The kidneys are normal in size and attenuation. There is no hydronephrosis or perinephric fat stranding. Multiple Bosniak type I cysts are present in both kidneys. No renal calculi or renal masses are identified. The ureters are normal in caliber, and no ureteral calculi are seen. The bladder is normal in contour. No evidence of focal or diffuse bowel wall thickening or evidence of bowel obstruction is seen. No features of an inflamed appendix are identified. No adenopathy or fluid collections are seen. The aorta is normal in caliber. No aggressive-appearing osseous lesions are identified. Degenerative changes are noted in the visualized spine in the form of marginal osteophytes, endplate irregularities and sclerosis, reduction in disc height, small posterior disc bulges, vacuum phenomenon, and facet arthropathy changes, predominantly at the lower lumbar levels. Possible left transverse process fracture of the L2 vertebra. IMPRESSION: Possible left transverse process fracture of the L2 vertebra. Multiple Bosniak type I cysts in both kidneys. Electronically signed by Adi Joyner 05-20-2025 03:32 AM
[2025-05-20 03:45] LABS: Appearance Urine Clear (Clear); Bacteria Urine Automated None Seen (None Seen); Epithelial Cell Urine Auto 0-2 /hpf (0-2); Glucose Urine UA Negative (Negative); RBC Urine Automated >20 /hpf (0-2); WBC Urine Automated 0-5 /hpf (0-5)
[2025-05-20] MEDS ORDERED: GLUCAGON FOR INJ 1 MG VIAL SQ PRN (07:49)
[2025-05-20] MEDS ORDERED: ACETAMINOPHEN 325 MG TAB PO PRN (07:49)
[2025-05-20] MEDS ORDERED: DEXTROSE 50% 50 ML SYRINGE IV PRN (07:49)
[2025-05-20] MEDS ORDERED: POLYETHYLENE (MIRALAX) 17 GM PACK PO PRN (07:49)
[2025-05-20] MEDS ORDERED: GLUCOSE 40% GEL 15 GM TUBE PO PRN (07:49)
[2025-05-20] MEDS ORDERED: HYDROmorphone INJ 0.5 MG/0.5 ML SYR IV PRN (07:49)
[2025-05-20] MEDS ORDERED: ACETAMINOPHEN 1,000 MG/100 ML VIAL IV PRN (07:49)
[2025-05-20] MEDS ORDERED: CARBOHYDRATES FOR HYPOGLYCEMIA PO PRN (07:49)
[2025-05-20] MEDS ORDERED: NITROGLYCERIN SL 0.4 MG/TAB TAB SL PRN (07:49)
[2025-05-20] MEDS ORDERED: GLUCOSE 10 TAB/TUBE PO PRN (07:49)
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
[2025-05-20] MEDS: ROSUVASTATIN CALCIUM 20 MG TAB PO SCH (08:40)
[2025-05-20] MEDS: SODIUM CHLORIDE 0.9% 1,000 ML IV SCH (08:41)
[2025-05-20] MEDS: INSULIN ASPART PER UNIT CHARGE SC SCH (09:01)
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
[2025-05-20] MEDS: AMPICILLIN/SULBACTAM SOD 3,000 MG/100 ML BAG IV SCH (11:44)
[2025-05-20] MEDS: GADOBUTROL 65ML VIAL IV ONE (14:21)
--- NOTE | 2025-05-20 14:40 | Magnetic Resonance Report ---
MR brain wo/w con CLINICAL HISTORY: CVA? on ct scan COMPARISON STUDY: Head CT earlier today and MRI of 07/02/2024 FINDINGS: There is motion artifact. No restricted diffusion seen to suggest acute infarction. No mass effect, midline shift, or hydrocephalus. There is a small high T2 signal intensity finding posterior left basal ganglia could represent an old lacunar infarction or prominent perivascular space. There are minimal chronic small vessel ischemic changes. There is mild paranasal sinus mucosal thickening. No abnormal enhancement seen in the brain. IMPRESSION: 1. No evidence of acute infarction. 2. No abnormal enhancement seen in the brain. ACT 112: Negative or not required by law. Electronically signed by: Brown Mayer M.D. 05/20/2025 2:38 PM
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
[2025-05-21 03:03] VITALS: RESP 18; O2SAT 96
[2025-05-21 06:22] LABS: Hematocrit (blood only) 35.2 % (42.0-52.0); Hemoglobin 11.7 g/dl (14.0-18.0); Immature Granulocytes # (auto) 0.04 K/uL (0.01-0.20); Immature Granulocytes % (auto) 0.5 %; Mean Corpuscular Hemoglobin 29.3 pg (25.0-34.0); Mean Corpuscular Volume 88.2 fL (80.0-100.0); Platelet Count 162 K/uL (130-400); RDW Standard Deviation 46.9 fL (36.4-46.3); Red Blood Count 3.99 M/uL (4.70-6.10); White Blood Count 7.34 K/ul (4.8-10.8)
[2025-05-21 06:42] LABS: Anion Gap 6.0 (3-11); Blood Urea Nitrogen 20.0 mg/dl (6-23); Calcium 8.4 mg/dl (8.6-10.3); Carbon Dioxide 27.0 mmol/L (21-32); Chloride 106.0 mmol/L (98-107); Creatinine Clr Calc Pharmacy 112.0 ml/min; Glucose 118.0 mg/dl (70-99(Fasting)); Magnesium 2.0 mg/dl (1.7-2.4); Potassium 4.5 mmol/L (3.5-5.1); Sodium 139.0 mmol/L (136-145)
[2025-05-21 07:41] LABS: Hemoglobin A1C 6.1 % (4.5-5.6)
[2025-05-21 07:47] VITALS: BP 127/81; TEMP 98.1
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
[2025-05-21 10:40] VITALS: PULSE 54
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
--- NOTE | 2025-05-23 16:12 | Electrocardiogram Report ---
Test Reason : Blood Pressure : */* mmHG Vent. Rate : 80 BPM Atrial Rate : 80 BPM P-R Int : 174 ms QRS Dur : 76 ms QT Int : 378 ms P-R-T Axes : 27 50 57 degrees QTcB Int : 435 ms Normal sinus rhythm Normal ECG When compared with ECG of 01-Jul-2024 22:48, No significant change was found Confirmed by Cholo Galarza ([id number]) on 05/23/2025 4:11:31 PM Referred By: REFERRED SELF Confirmed By: Cholo Galarza
== END 2025-05-21 13:12 | disposition home or self-care (01) ==
LOC: ED 01:12 → EDINP 06:06 → INTOOBSV 06:06 → 2W 07:49